=== PATIENT | female | born 1940 | race Caucasian/White ===

== ENCOUNTER → 2017-05-28 | Outpatient (CLI) | payer MEDICARE, BC ==
[2017-05-28 13:47] LABS: HCT 39.3 % (34.0-46.0); HGB 12.5 gm/dL (11.4-16.0); MCH 28.3 pg (25.0-35.0); MCHC 31.7 g/dL (31.0-37.0); MCV 89.3 fL (80.0-100.0); Platelet Count 266 k/uL (150-450); RDW 13.6 % (11.5-15.5); WBC 5.2 k/uL (3.8-10.6)
[2017-05-28 14:00] LABS: Calcium 10.2 mg/dL (8.4-10.2); Potassium 4.5 mmol/L (3.5-5.1); Total Bilirubin 0.4 mg/dL (0.2-1.3); Total Protein 6.8 g/dL (6.3-8.2)
[2017-05-28 14:06] LABS: Appearance,Urine Cloudy (Clear); Bacteria,Urine Rare /hpf; Bilirubin,Urine Negative (Negative); Blood,Urine Negative (Negative); Color,Urine Yellow; Glucose,Urine (UA) Negative (Negative); Hyaline Casts,Urine 45 /lpf (0-2); Ketones,Urine Negative (Negative); Leukocyte Esterase,Urine Negative (Negative); Mucus,Urine Rare /hpf; Nitrite,Urine Negative (Negative); PH, Urine 5.5 (5.0-8.0); Protein,Urine Negative (Negative); RBC,Urine <1 /hpf (0-5); Specific Gravity,Urine 1.018 (1.001-1.035); Squamous Epithelial Cell,Urine <1 /hpf (0-4); WBC,Urine 1 /hpf (0-5)
[2017-05-28 14:08] LABS: Partial Thromboplastin Time 20.6 sec (22.0-30.0); Prothrombin Time 10.2 sec (9.0-12.0)
== END | disposition home or self-care (01) ==
LOC: LABPAT 12:52
PROVIDERS: ATTEND Orthopaedic Surgery
DX: Z01.818 Encounter for other preprocedural examination (principal); Z01.812 Encounter for preprocedural laboratory examination
CPT/HCPCS: 36415; 80053; 81001; 85027; 85610; 85730; 86850; 86900; 86901; 87070

== ENCOUNTER 2017-06-03 10:05 | Inpatient (IN) | payer MEDICARE, BC ==
[2017-05-27 10:22] VITALS: BMI 26.1
[~2017-06-03 10:05] MED LIST: ACETAMINOPHEN TAB 500 MG TAB PO ONE; DEXAMETHASONE SOD PHOSPHATE 10 MG/ML 1 ML VIAL IV ONE; LACTATED RINGERS 1,000 ML IV SCH; MELOXICAM 7.5 MG TAB PO ONE; MIDAZOLAM 2 MG/2 ML VIAL IV PRN; MORPHINE SULFATE 4 MG/ML SYRINGE IV PRN; ONDANSETRON 4 MG/2 ML VIAL IVP ONE; TRANEXAMIC ACID 1,000 MG in SODIUM CHLORIDE 0.9% 50 ML IVPB ONE; ceFAZolin IN SWFI 2 GM/20 ML SYRINGE IVP ONE
[2017-06-03] MEDS ORDERED: LIDOCAINE 1% 20 ML VIAL (10MG/ML) FOR IV START INTRADERMA ONE (10:37)
[2017-06-03] MEDS ORDERED: PHENYLEPHRINE-0.9% NACL SYG 1 MG/10 ML SYRINGE ONE (12:33)
[2017-06-03] MEDS ORDERED: ePHEDrine SULFATE/0.9% NACL/PF 50 MG/5 ML SYRINGE IV ONE (12:33)
[2017-06-03] MEDS ORDERED: TRANEXAMIC ACID 1,000 MG/10 ML VIAL ONE (12:33)
[2017-06-03] MEDS ORDERED: MIDAZOLAM 2 MG/2 ML VIAL ONE (12:33)
[2017-06-03] MEDS ORDERED: SODIUM CHLORIDE 0.9% 100 ML BAG ONE (12:33)
[2017-06-03] MEDS ORDERED: PROPOFOL 10 MG/ML 20 ML VIAL IV ONE (12:33)
[2017-06-03] MEDS ORDERED: fentaNYL (PF) 50 MCG/ML 2 ML AMP ONE (12:33)
[2017-06-03] MEDS: ROPIVACAINE 246.25 MG, EPINEPHrine 0.5 MG, KETOROLAC 30 MG, cloNIDine HCL/PF 80 MCG, WA... MISCELLANE ONE ×10 (13:13→14:19)
[2017-06-03] MEDS ORDERED: ceFAZolin 1,000 MG in SODIUM CHLORIDE 0.9% 1,000 ML IRRIGATION ONE ×4 (13:14)
[2017-06-03] MEDS ORDERED: LACTATED RINGERS 1,000 ML IV ONE (14:34)
[2017-06-03] MEDS ORDERED: ONDANSETRON 4 MG/2 ML VIAL IVP PRN (14:48)
[2017-06-03] MEDS ORDERED: DIAZEPAM 5 MG TAB PO PRN ×2 (14:48)
[2017-06-03] MEDS ORDERED: MAGNESIUM HYDROXIDE 2,400 MG/10 ML CUP PO PRN (14:48)
[2017-06-03] MEDS ORDERED: HYDROmorphone 0.5 MG/0.5 ML SYRINGE IVP PRN ×3 (14:48)
[2017-06-03] MEDS ORDERED: NALOXONE 0.4 MG/ML 1 ML VIAL IV PRN (14:48)
[2017-06-03] MEDS ORDERED: SODIUM CHLORIDE 0.9% 1,000 ML IV SCH (15:00)
--- NOTE | 2017-06-03 15:19 | XR ---
Limited right hip HISTORY: Status post right hip arthroplasty Single frontal view of the right hip Patient is status post right hip arthroplasty. There is anatomic alignment. Lucency in the soft tissu es is compatible with postop state. IMPRESSION: Orthopedic follow-up.
--- NOTE | 2017-06-03 16:03 | P.OP ---
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 Postoperative Diagnosis: Polyethylene failure right total hip arthroplasty Procedure(s) Performed: Revision right total hip arthroplasty with the dual mobility insert Implants: [employer] polar cup shell cemented size 43 [employer] polar cup XLPE insert size 43/22 [employer]hew Oxinium 22 mm +8 femoral head [place] antibiotic cement with tobramycin The articulation is Oxinium on polyethylene Anesthesia: spinal Surgeon: Brennen Marcelino Steam Crane Operator #1: Suzi Jason Estimated Blood Loss (ml): 200 Pathology: other (Culture and Gram stain) Condition: stable Disposition: PACU Indications for Procedure: This is a 76-year-old female that sustained a femoral neck fracture proximally 10 years ago and had a total hip arthroplasty performed. She subsequently developed polyethylene wear and after discussing the surgical nonsurgical treatment options with her at length she wished to proceed with revision of her total hip arthroplasty and polyethylene exchange. Operative Findings: The operative findings are consistent with severe polyethylene wear of the right total hip arthroplasty. Also during the surgery, a large amount of clear yellow fluid was encountered and this was then cultured and had a Gram stain performed. The Gram stain showed gram-positive cocci. Due to the appearance of no active infection, the implants were left in place and antibiotic cement was used. Description of Procedure: Patient was seen and evaluated in the preoperative area, consent was reviewed, and the surgical site was marked with a skin marker. Patient was then brought to the operating room and given prophylactic antibiotics intravenously. 1 g of Tranexamic acid was also given. A spinal anesthetic was administered by the anesthesia department. The patient was then placed on the operative table and placed in the lateral decubitus position with the bony prominences well-padded. The hip area was then prepped and draped in usual sterile fashion. A universal timeout was then performed, which confirmed the patient's name, surgical site, ALLERGIES, and procedure being performed. Next the incision site was located in the lateral aspect of the hip, centered at the tip of the greater trochanter.. The skin and subcutaneous tissues were sharply incised. Incision was carefully dissected down to the fascia. This fascia was then incised in line with the incision. Next, a Charnley retractor was then placed in the abductors were identified. The anterior one third of the abductors was released off the trochanter and one large sleeve. The anterior hip capsule was then exposed. The capsule was then opened. A large amount of clear yellow fluid was then encountered, and this was then cultured. The proximal femur was then visualized. The hip was then gently dislocated. There was a large amount of reactive synovitis and this was removed with a Ronguer. The femoral head was then easily removed with an osteotome and a mallet. The femoral component was then inspected and found to be well fixed. Attention was then directed to the acetabulum. The acetabulum was then exposed and the polyethylene liner was easily removed. 2 screws removed from the acetabular component, and acetabular found to be well fixed. At this point the Gram stain had come back with gram-positive cocci. There did not appear to be any active infection, and due to the fact that her components were well fixed, made the decision to not remove all the components at this time. The dual mobility trials were then placed and hip was then reduced. Hip was taken through range of motion and was stable. The leg lengths appeared equal. Trials were then removed. The components were then opened, and antibiotic cement was mixed. The dual mobility liner was then cemented into the existing cup. After the cemented hardened the femoral head and dual mobility liner were then impacted and the hip was reduced. The leg lengths were again examined and found to be equal. The hip was also taken through range of motion, and found to be stable. The hip was then copiously irrigated with antibiotic solution with pulsatile lavage. The hip was then irrigated with Irrisept solution. The soft tissues were then injected with ropivacaine solution. A second dose of 1 g of Tranexamic acid was given. The abductors were then repaired with #5 Ethibond suture with drill holes to the bone. The fascia was closed with #2 strata fix suture. The subcutaneous tissue was closed with 3-0 Vicryl. The subcuticular tissue was closed with 30 strata fix suture. The skin was then closed with Dermabond glue, and a silver dressing. The patient was then transferred to the recovery room in stable condition. The Asst.AUGUSTO Mata was required due to the complexity of surgery, and the need for skilled surgical scrub technician for positioning, draping, exposure, retraction, and closure of the wound.and closure of the wound.
[2017-06-03] MEDS ORDERED: VANCOMYCIN IV PER PHARMACY 1 EACH MISC MISCELLANE PRN (20:03)
[2017-06-03] MEDS ORDERED: ASPIRIN 325 MG TAB PO SCH (21:00)
[2017-06-03] MEDS ORDERED: VANCOMYCIN 1,500 MG in SODIUM CHLORIDE 0.9% 250 ML IVPB ONE (21:00)
[2017-06-03] MEDS: ceFAZolin IN SWFI 2 GM/20 ML SYRINGE IVP SCH (21:34)
[2017-06-03] MEDS: SENNOSIDES-DOCUSATE SODIUM 1 EACH TAB PO SCH (21:35)
[2017-06-03] MEDS: HYDROcodone/APAP 5-325MG 1 EACH TAB PO PRN (21:35)
--- NOTE | 2017-06-03 22:14 | P.CONS ---
History of Present Illness - Reason for Consult Consult date: 06/03/17 - Chief Complaint Pain right hip - History of Present Illness Very pleasant 76-year-old woman who was noted infectious disease service from many years ago when she difficulty with an infection of her left total knee arthroplasty. It appears at the point in time she had bacteremic infection in the left knee was seated requiring its revision. She's done well over the last many years but in 2016 was having increasing pain to her right knee and underwent a right total knee arthroplasty the 1 extremely well. She which was up and walking the day of surgery and had a short hospitalization. She's had no other acute troubles except for increasing pain to her right hip. Was evaluation at the polyethylene was worn and consequently she was taken to the operating room for a revision. A dual mobility was placed however the time of the procedure a fluid collection was encountered at the time of the stat Gram stain gram-positive cocci were seen. Because there is no other evidence of infection at the site the procedure completed, antibiotic cement was utilized and the infectious diseases consultation was requested. It is time the patient is postoperative and doing quite well. Her pain is under good control she's been able to get up to the commode without great difficulties. She is denying any difficulties with fevers, chills or rigors before her surgery. Other than the pain from her arthritis she's had no other new acute complaints. Her weight is been stable and look forward to the surgery to get her more ambulatory because she is independent. She has been for 2 years and has done really quite well. Review of Systems HEENT:Denies headache or acute visual change. Denies sinus or mouth discomforts. Denies neck stiffness or pain. Denies significant oral cavity pain. Denies difficulty on swallowing. Lungs: Denies significant shortness of breath, cough, sputum production, or hemoptysis. Cardiovascular: Denies significant shortness of breath, chest pain, chest wall pain, orthopnea, dyspnea on exertion, syncope Gastrointestinal:Denies nausea, vomiting, diarrhea, constipation, hematemesis, melena, hematochezia. No no significant change of bowel habit noticed. Musculoskeletal: As per the HPI increasing pain to her right hip necessitating the surgery and the findings as above Skin: Denies new rash or lesions. No new ulcers or wounds are related.. Neuro: Denies headache or visual change. Denies any new onset weakness or difficulty with ambulation. Denies falls or seizures. Psychiatric:Denies anxiety or depression. Endocrine: Denies significant fatigue, denies significant weight loss or weight gain. Past Medical History Past Medical History: Hyperlipidemia, Hypertension, Osteoarthritis (OA), Rheumatoid Arthritis (RA) Additional Past Medical History / Comment(s): HX OF FX RIGHT HIP, STATES HX OF RIGHT AND LEFT LEG INFECTION., STATES BRONCHITIS 5 WEEKS AGO WITH STEROIDS. History of Any Multi-Drug Resistant Organisms: None Reported Past Surgical History: Hysterectomy, Joint Replacement, Tonsillectomy Additional Past Surgical History / Comment(s): TOTAL LEFT KNEE-ANTIBIOTICS BEADS , TOTAL RIGHT HIP , DARVIN CATARACTS. Past Anesthesia/Blood Transfusion Reactions: No Reported Reaction Past Psychological History: Anxiety Additional Psychological History / Comment(s): for 2 year lifelong nonsmoker. no international travel. no experience. No significant alcohol use or animal exposures. 2 adult children who remain involved. Her daughter will come to help her after surgery. Smoking Status: Never smoker Past Alcohol Use History: Occasional Past Drug Use History: None Reported - Past Family History Daughter(s) Family Medical History: Pulmonary Embolus Medications and Allergies Home Medications and Allergies Comment(s): Current Medications Hydrocodone Bitart/Acetaminophen ([place] 5-325) 1 each PO Q6HR PRN PRN Reason: Pain Scale 1 to 5 Last Admin: 06/03/17 21:35 Dose: 1 each Hydrocodone Bitart/Acetaminophen ([place] 5-325) 2 each PO Q6HR PRN PRN Reason: Pain Scale 6 to 10 Amlodipine Besylate (Norvasc) 10 mg PO DAILY [facility] Aspirin (Aspirin) 325 mg PO BID [facility] Last Admin: 06/03/17 21:35 Dose: 325 mg Atorvastatin Calcium (Lipitor) 40 mg PO DAILY [facility] Bisoprolol Fumarate (Ziac 10-6.25) 1 each PO DAILY [facility] Cefazolin Sodium (Kefzol) 2 gm IVP Q8H [facility] Stop: 06/04/17 04:01 Last Admin: 06/03/17 21:34 Dose: 2 gm Diazepam (Valium) 2.5 mg PO Q8HR PRN PRN Reason: Mild Spasms Diazepam (Valium) 5 mg PO Q8HR PRN PRN Reason: Moderate to Severe Spasms Fenofibrate (Lofibra) 160 mg PO DAILY [facility] Hydromorphone HCl (Dilaudid) 0.125 mg IVP Q3HR PRN PRN Reason: Pain Scale 1 to 3 Hydromorphone HCl (Dilaudid) 0.25 mg IVP Q3HR PRN PRN Reason: Pain Scale 4 to 6 Hydromorphone HCl (Dilaudid) 0.5 mg IVP Q3HR PRN PRN Reason: Pain Scale 7 to 10 Hydroxyzine Pamoate (Vistaril) 25 mg PO Q4HR PRN PRN Reason: Nausea, Anxiety, Pain Control Lactated Ringer's (Lactated Ringers) 1,000 mls @ 20 mls/hr IV .Q24H [facility] Last Admin: 06/03/17 11:13 Dose: 1,000 mls Sodium Chloride (Saline 0.9%) 1,000 mls @ 65 mls/hr IV .[id number] [facility] Last Admin: 06/03/17 21:38 Dose: 65 mls/hr Vancomycin HCl 1,500 mg/ (Sodium Chloride) 250 mls @ 125 mls/hr IVPB ONCE ONE Stop: 06/03/17 22:59 Last Admin: 06/03/17 21:36 Dose: 125 mls/hr Vancomycin HCl 1,250 mg/ (Sodium Chloride) 250 mls @ 125 mls/hr IVPB Q16H [facility] Lactobacillus Acidoph/Bulgaricus (Lactinex) 1 each PO 1200 [facility] Magnesium Hydroxide (Milk Of Magnesia) 2,400 mg PO DAILY PRN PRN Reason: Constipation Meloxicam (Mobic) 7.5 mg PO DAILY [facility] Midazolam HCl (Versed) 2 mg IV ONCE PRN PRN Reason: Anxiety Stop: 06/04/17 05:14 Morphine Sulfate (Morphine Sulfate (Inj)) 4 mg IV ONCE PRN PRN Reason: Pain Stop: 06/04/17 05:14 Multivitamins (Theragran) 1 each PO 1200 [facility] Naloxone HCl (Narcan) 0.2 mg IV Q2M PRN PRN Reason: Opioid Reversal Ondansetron HCl (Zofran) 4 mg IVP DAILY PRN PRN Reason: Nausea And Vomiting Oxybutynin Chloride (Ditropan Xl) 10 mg PO DAILY [facility] Senna/Docusate Sodium (Senokot-S) 2 each PO HS [facility] Last Admin: 06/03/17 21:35 Dose: 2 each Venlafaxine HCl (Effexor Xr) 75 mg PO DAILY [facility] Home Medications Medication Instructions Recorded Confirmed Type Atorvastatin [Lipitor] 40 mg PO DAILY 08/29/15 06/03/17 History Bisoprolol-Hctz 10-6.25 mg [Ziac 1 tab PO DAILY 08/29/15 06/03/17 History 10-6.25] Celecoxib [CeleBREX] 200 mg PO DAILY 08/29/15 06/03/17 History Fenofibrate [Tricor] 160 mg PO DAILY 08/29/15 06/03/17 History Solifenacin Succinate [Vesicare] 5 mg PO DAILY 08/29/15 06/03/17 History amLODIPine [Norvasc] 10 mg PO DAILY 08/29/15 06/03/17 History L.acidoph,Paracasei, B.lactis 1 cap PO DAILY 05/27/17 06/03/17 History [Probiotic] Magnesium Malate 1 tab PO DAILY 05/27/17 06/03/17 History Multivitamins, Thera [Multivitamin 1 tab PO DAILY 05/27/17 06/03/17 History (formulary)] oxyCODONE-APAP 7.5-325MG [Percocet 1 tab PO BID PRN 05/27/17 06/03/17 History 7.5-325 mg] Venlafaxine HCl ER [Effexor Xr] 75 mg PO DAILY 06/03/17 06/03/17 History Allergies Allergy/AdvReac Type Severity Reaction Status Date / Time No Known Allergies Allergy Verified 06/03/17 15:57 Physical Exam Vitals: Vital Signs Temp Pulse Pulse Resp BP BP Pulse Ox 06/03/17 18:00 69 134/52 06/03/17 17:45 86 159/72 06/03/17 17:30 73 141/58 06/03/17 17:15 84 155/66 06/03/17 17:00 81 158/58 06/03/17 16:45 75 148/65 06/03/17 16:30 78 149/81 06/03/17 16:15 78 139/67 06/03/17 16:00 96.6 F L 69 16 143/74 100 06/03/17 15:30 79 16 160/72 100 06/03/17 15:15 79 16 161/70 100 02/13/18 15:00 77 16 147/63 100 06/03/17 14:48 97.8 F 81 16 150/63 97 06/03/17 10:35 97.2 F L 54 L 18 173/72 100 Intake and Output 06/03/17 06/03/17 06/03/17 06:59 14:59 22:59 Intake Total 1012 90 Output Total 200 Balance 812 90 Intake: IV 1012 90 Output: Estimated Blood Loss 200 Other: Weight 71.214 kg Patient Weight 06/04/17 06:59 Weight 71.214 kg Pleasant 76-year-old woman of a thin appropriate build who is in no distress. Without fever chills or rigors. HEENT: Anicteric conjunctiva are pink and moist nasal mucosa grossly intact without significant lesions, there is no thrush. Neck: The neck is supple without significant lymphadenopathy or thyromegaly. Lungs: Good bilateral air entry without significant crackles or wheezing. There is no significant bronchial sounds. There is no egophony or dullness. Heart: Regular rate and rhythm with an audible S1-S2, no S3 no S4. There is no significant murmur click or rub, PMI was nondisplaced. Abdomen: Positive bowel sounds soft and nontender without palpable masses or organomegaly. There was no guarding or rebound. Extremities: The upper extremities have excellent pulses they are symmetric, no significant petechiae or telangiectasia. No splinter hemorrhages were noted. The lower extremities are free from significant edema. The peripheral pulses were 2+ and symmetric. The right hip was evaluated in the silver dressing is in place with no staining. There is no erythema crepitance or fluctuance around the joints. The left knee is well-healed with no difficulties. The right knee is also well-healed with no erythema crepitance or fluctuance. Neuro: Awake alert oriented to person place and time. There are no acute new gross focal sensory motor deficits. Results Labs: Microbiology - Last 24 Hours (Table) 06/03/17 13:10 Wound Culture - Preliminary Hip - Right 06/03/17 13:10 Anaerobic Culture - Preliminary Hip - Right Laboratory Results Blood Type AB Positive 05/28/17 13:20 Blood Type Confirm AB Positive 06/03/17 10:44 Blood Type Recheck CABO Indicated 05/28/17 13:20 Antibody Screen NEGATIVE 05/28/17 13:20 Spec Expiration Date 06/05/2017 - 231905/28/17 13:20 Microbiology 06/03/17 13:10 Hip - Right Wound Culture - Preliminary 06/03/17 13:10 Hip - Right Anaerobic Culture - Preliminary Assessment and Plan (1) Tear in polyethylene cup of right prosthetic hip Current Visit: Yes Status: Acute Code(s): T84.010A - BROKEN INTERNAL RIGHT HIP PROSTHESIS, INITIAL ENCOUNTER SNOMED Code(s): 323340680 (2) Infection and inflammatory reaction due to internal right hip prosthesis, initial encounter Narrative/Plan: Pleasant 76-year-old woman presents to Hospital for the revision of her polyethylene to her right hip because of increasing difficulties with ambulation and discomfort. She was taken to the operating room and the dual mobility was placed. As noted there is evidence of fluid collection that was encountered and Gram stain was positive for gram-positive cocci. If this time culture is in process and antibiotic therapy has been initiated with vancomycin therapy with cefazolin. Pending further culture results. Does have a history of infection to her left knee that did require vancomycin therapy. The patient is instructed that the culture will help further direct what her course of antibiotic therapy would be a discharge. However in the highest likelihood that she will require outpatient intravenous antibiotic therapy for this infection. She's had outpatient therapy in the past but her was alive was able to orchestrated. We discussed that she still would like to do it herself possibly utilizing elastomeric pumps. Laboratories are requested Multivitamin with zinc High-protein diet and she is up-to-date with her tetanus. We'll monitor. Current Visit: Yes Status: Acute Code(s): T84.51XA - INFECT/INFLM REACTION DUE TO INTERNAL RIGHT HIP PROSTH, INIT SNOMED Code(s): 14453697
--- NOTE | 2017-06-03 22:46 | CONS ---
CONSULTATION DATE OF SERVICE: 06/03/2017. REASON FOR CONSULTATION: Medical management requested by Dr. Marcelino. CONSULTATION: This is a pleasant 76-year-old patient of Dr. Dawson. Has undergone a right total hip arthroplasty. This is a revision. The patient had a similar joint replacement on the same joint 10 years ago, which is now worn out. Postoperative pain is well controlled. No nausea or vomiting. No chest pain or short of breath. Sitting up, comfortable. The patient's chronic stable medical conditions include hypertension, hyperlipidemia, anxiety, urinary incontinence, arthritis in other joints. REVIEW OF SYSTEMS: CONSTITUTIONAL: None. HEENT: None. RESPIRATORY: None. CARDIOVASCULAR: None. GASTROINTESTINAL: None. GENITOURINARY: Urinary incontinence. DERMATOLOGIC: None. HEMATOLOGIC: None. LYMPHATICS: None. NEUROLOGIC: None. PSYCHIATRY: Anxiety. MUSCULOSKELETAL: Pain in some joints. PAST MEDICAL HISTORY: Hypertension, hyperlipidemia, osteoarthritis, anxiety, urinary incontinence. PAST SURGICAL HISTORY: Hysterectomy, joint replacement, tonsillectomy, left total knee with antibiotic beads, total right hip, bilateral cataract. SOCIAL HISTORY: Does not smoke. Alcohol occasionally. The patient has a daughter and a boyfriend at home. FAMILY HISTORY: Pulmonary embolism. HOME MEDICATIONS: 1. Percocet 7.5 one tab b.i.d. p.r.n. 2. Norvasc 10 mg p.o. daily. 3. Effexor XR 75 mg p.o. daily. 4. VESIcare 5 mg p.o. daily. 5. Multivitamin 1 tab p.o. daily. 6. Magnesium 1 tab p.o. daily. 7. Probiotic 1 capsule p.o. daily. 8. Tricor 160 mg p.o. daily. 9. Celebrex 200 mg p.o. daily. 10.Ziac 10/625 one tab p.o. daily. 11.Lipitor 40 mg p.o. daily. ALLERGIES: None. PHYSICAL EXAMINATION: Afebrile, pulse 69, respiration 16, blood pressure 134/52. GENERAL APPEARANCE: Average built, sitting up, comfortable. EYES: Pupils equal. Conjunctivae normal. HEENT: Oral cavity normal. NECK: JVD not raised. Mass not palpable. Respiratory effort. LUNGS: Clear. CARDIOVASCULAR: First and second sounds normal. No edema. ABDOMEN: Soft, nontender. Liver and spleen not palpable. LYMPHATIC: No lymph nodes palpable in neck or axillae. PSYCHIATRY: Alert, oriented x3. Mood and affect normal. NEUROLOGIC: Pupils equal. Cranial nerves grossly intact. Power and sensation grossly intact. EXTREMITIES: Dressing over the right hip. INVESTIGATIONS: Blood work from 05/17/2017 shows a white count of 5.2, hemoglobin 12.5, potassium 4.5, creatinine 1.3. ASSESSMENT: 1. Essential hypertension. 2. Hyperlipidemia. 3. Primary osteoarthritis. 4. Anxiety, not otherwise specified. 5. Chronic urinary stress incontinence. 6. Possible chronic kidney disease, could be from hypertensive nephrosclerosis. Note that patient is on Celebrex and Ziac. PLAN: Will order renal ultrasound. We will check the patient's UA. Because patient currently is also getting Mobic and aspirin for DVT prophylaxis, that could be pretty heavy on the kidneys. For the time being we will put the patient on Lovenox and talk to Dr. Marcelino in the morning for the DVT prophylaxis. MMODL / IJN: [id number] /
[2017-06-04] MEDS: ceFAZolin IN SWFI 2 GM/20 ML SYRINGE IVP SCH (04:02)
[2017-06-04] MEDS: HYDROcodone/APAP 5-325MG 1 EACH TAB PO PRN ×3 (04:08→18:21)
[2017-06-04] MEDS: hydrOXYzine PAMOATE 25 MG CAP PO PRN ×3 (04:09→18:23)
[2017-06-04 07:30] VITALS: RESP 16
[2017-06-04 07:57] LABS: Basophils % (A) 0 %; Eosinophils % (A) 0 %; Lymphocytes # (A) 0.9 k/uL (1.0-4.8); Lymphocytes % (A) 9 %; MCHC 31.5 g/dL (31.0-37.0); Monocytes # (A) 0.7 k/uL (0-1.0); Monocytes % (A) 7 %; Neutrophils # (A) 7.6 k/uL (1.3-7.7); Neutrophils % (A) 81 %; Platelet Count 195 k/uL (150-450); RBC 3.59 m/uL (3.80-5.40); RDW 13.6 % (11.5-15.5); WBC 9.4 k/uL (3.8-10.6)
[2017-06-04 08:00] LABS: HGB 10.1 gm/dL (11.4-16.0)
[2017-06-04 08:04] LABS: Anion Gap 7 mmol/L; Blood Urea Nitrogen 24 mg/dL (7-17); Calcium 9.2 mg/dL (8.4-10.2); Carbon Dioxide 26 mmol/L (22-30); Chloride 107 mmol/L (98-107); Glucose 134 mg/dL (74-99); Sodium 140 mmol/L (137-145)
[2017-06-04 08:14] LABS: Potassium 4.5 mmol/L (3.5-5.1)
[2017-06-04] MEDS ORDERED: MELOXICAM 7.5 MG TAB PO SCH (09:00)
[2017-06-04] MEDS: BISOPROLOL-HCTZ 10-6.25 MG 1 EACH TAB PO SCH (09:35)
[2017-06-04] MEDS: ATORVASTATIN 40 MG TAB PO SCH (09:35)
[2017-06-04] MEDS: ENOXAPARIN 40 MG/0.4 ML SYRINGE SQ SCH (09:35)
[2017-06-04] MEDS: amLODIPine 10 MG TAB PO SCH (09:35)
[2017-06-04] MEDS: FENOFIBRATE 160 MG TAB PO SCH (09:35)
[2017-06-04] MEDS: VENLAFAXINE HCL ER 75 MG CAP PO SCH (09:36)
--- NOTE | 2017-06-04 11:45 | US ---
EXAMINATION TYPE: US renals and bladder DATE OF EXAM: 06/04/2017 COMPARISON: NONE CLINICAL HISTORY: renal failure. EXAM MEASUREMENTS: Right Kidney: 10.7 x 5.0 x 6.5 cm Left Kidney: 9.6 x 4.7 x 5.2 cm Right Kidney: No hydronephrosis or masses seen Left Kidney: No hydronephrosis or masses seen Bladder: empty and therefore not visualized There is no evidence for hydronephrosis at this point in time. No nephrolithiasis is seen. No lynette s are identified. The urinary bladder is empty IMPRESSION: No acute process.
[2017-06-04] MEDS: LACTATED RINGERS 1,000 ML IV SCH ×2 (12:51→22:15)
[2017-06-04] MEDS: OXYBUTYNIN 10 MG TAB.ER.24 PO SCH (12:52)
[2017-06-04] MEDS: MULTIVITAMINS, THERA 1 EACH TAB PO SCH (12:53)
[2017-06-04] MEDS: LACTOBACILLUS ACIDOPH & BULGAR 1 EACH PACKET PO SCH (12:53)
[2017-06-04] MEDS: VANCOMYCIN 1,250 MG in SODIUM CHLORIDE 0.9% 250 ML IVPB SCH (12:57)
[2017-06-04 14:19] LABS: Appearance,Urine Clear (Clear); Bilirubin,Urine Negative (Negative); Blood,Urine Negative (Negative); Color,Urine Yellow; Glucose,Urine (UA) Trace (Negative); Ketones,Urine Trace (Negative); Leukocyte Esterase,Urine Negative (Negative); Nitrite,Urine Negative (Negative); PH, Urine 5.5 (5.0-8.0); Protein,Urine Trace (Negative); Specific Gravity,Urine 1.024 (1.001-1.035); Urobilinogen,Urine <2.0 mg/dL (<2.0)
--- NOTE | 2017-06-04 22:02 | PN ---
PROGRESS NOTE DATE OF SERVICE: June 04, 2017. PRESENTING COMPLAINT: Hip surgery. INTERVAL HISTORY: Patient is status post right total hip arthroplasty. Sitting on bed, comfortable. Has been up with therapy, doing better. No chest pain. Overall feeling better. Tolerating a diet. REVIEW OF SYSTEMS: Done for constitutional, cardiovascular, GI, pulmonary, musculoskeletal, relevant findings as above. CURRENT MEDICATIONS ARE: Resumed. EXAMINATION: Temperature 98.1, pulse 64, respiratory rate 16, blood pressure 126/65, pulse ox 97% on room air. General appearance sitting up comfortable. Eyes pupils are equal. Conjunctivae normal. HEENT: External appearance of nose and ears normal. Oral cavity normal. Neck JVD not raised. Mass not palpable. Respiratory effort lungs are clear. Cardiovascular 1st and 2nd sounds no edema. ABDOMEN: Soft, nontender. Liver and spleen not palpable. Psychiatry: Alert and oriented x3. Mood and affect normal. INVESTIGATIONS: White count 9.4, hemoglobin 10.1. ASSESSMENT: 1. Essential hypertension. 2. Hyperlipidemia. 3. Primary osteoarthritis. 4. Anxiety, not otherwise specified. 5. Chronic urinary stress incontinence. 6. Acute postop blood-loss anemia. 7. Chronic kidney disease. 8. Acute renal failure probably prerenal now corrected with IV fluids. PLAN: Continue current medication and treatment plan. Follow. MMODL / IJN: [id number] /
[2017-06-04] MEDS: SENNOSIDES-DOCUSATE SODIUM 1 EACH TAB PO SCH (22:14)
[2017-06-05] MEDS: HYDROcodone/APAP 5-325MG 1 EACH TAB PO PRN ×2 (03:31→10:58)
[2017-06-05] MEDS: VANCOMYCIN 1,250 MG in SODIUM CHLORIDE 0.9% 250 ML IVPB SCH (03:31)
[2017-06-05] MEDS: hydrOXYzine PAMOATE 25 MG CAP PO PRN ×2 (03:33→10:58)
[2017-06-05] MEDS: LACTATED RINGERS 1,000 ML IV SCH (06:59)
[2017-06-05 07:56] LABS: Anion Gap 7 mmol/L; Blood Urea Nitrogen 25 mg/dL (7-17); Calcium 9.7 mg/dL (8.4-10.2); Carbon Dioxide 30 mmol/L (22-30); Chloride 105 mmol/L (98-107); Glucose 86 mg/dL (74-99); Potassium 4.5 mmol/L (3.5-5.1); Sodium 142 mmol/L (137-145)
--- NOTE | 2017-06-05 08:47 | P.PN ---
Subjective Progress Note Date: 06/04/17 This is a 76-year-old female who is status post revision right total hip arthroplasty. This is postoperative day #1. Patient is seen and evaluated at bedside with Dr. Brennen Marcelino. Patient states her pain is well controlled. Patient denies any fever/chills, numbness, weakness, tingling, abdominal pain, shortness of breath or chest pain. Objective - Vital Signs Vital signs: Vital Signs Temp 98.1 F 06/04/17 07:28 Pulse 68 06/04/17 07:28 Resp 16 06/04/17 07:28 BP 136/67 06/04/17 07:28 Pulse Ox 98 06/04/17 07:28 Intake & Output 06/03/17 06/04/17 06/04/17 18:59 06:59 18:59 Intake Total 1102 2250 Output Total 200 500 Balance 902 1750 Weight 71.214 kg Intake: IV 1102 Intake, IV Titration 1290 Amount Sodium Chloride 0.9% 1, 1040 000 ml @ 65 mls/hr IV . [id number] KENDY Rx#:[id number] Vancomycin 1,250 mg In 250 Sodium Chloride 0.9% 250 ml @ 125 mls/hr IVPB Q16H KENDY Rx#:[id number] Oral 960 Output: Urine 500 Estimated Blood Loss 200 Other: # Voids 1 - Exam Vital signs are stable. Patient is in no acute distress and is alert and oriented 3. Calf is soft and nontender to palpation. Dressing is clean, dry, and intact. Patient has full foot and ankle motion without pain or difficulty. Neurovascular status and circulatory status are intact. 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 Continue routine postop care. #2. Cultures of right hip are pending. A positive Gram stain was reported during surgery. Appreciate input from Infectious disease. #3. Continue antocoagulation. #4. Weightbearing as tolerated with a walker #5. Leave dressing in place for 1 week #6. Possible discharge home in the next 1-2 days
[2017-06-05] MEDS: amLODIPine 10 MG TAB PO SCH (09:08)
[2017-06-05] MEDS: ENOXAPARIN 40 MG/0.4 ML SYRINGE SQ SCH (09:08)
[2017-06-05] MEDS: OXYBUTYNIN 10 MG TAB.ER.24 PO SCH (09:08)
[2017-06-05] MEDS: VENLAFAXINE HCL ER 75 MG CAP PO SCH (09:08)
[2017-06-05] MEDS: FENOFIBRATE 160 MG TAB PO SCH (09:08)
[2017-06-05] MEDS: ATORVASTATIN 40 MG TAB PO SCH (09:08)
[2017-06-05] MEDS: BISOPROLOL-HCTZ 10-6.25 MG 1 EACH TAB PO SCH (09:09)
--- NOTE | 2017-06-05 11:09 | P.DS ---
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 The patient presents for evaluation. After discussion and consideration patient elects to proceed with revision right total hip arthroplasty. The patient is seen preoperatively by Dr. Marcelino and cleared for surgery. Patient is admitted to [facility] on 06/03/2017 for revision right total hip arthroplasty. The procedures performed without complication or sequelae. The patient is doing well postoperatively. Labs and vital signs are stable on day of discharge. An initial gram stain was positive for rare PMN and a rare gram-positive in cluster and was reported during surgery. Patient received IV vancomycin and cefozolin as an inpatient. Infectious disease evaluated the patient and will place her on oral antibiotics upon discharge. Preliminary wound cultures of the right hip are negative after 24 hours. On day of discharge patient's hip incision is healing well. There is minimal erythema. There is no drainage noted at this time. There is minimal soft tissue swelling to the hip and thigh. Patient has full foot and ankle motion without difficulty or pain. Neurovascular status to the right lower extremity is intact. Patient is discharged home in good condition. Please see med rec for accurate list of home medications. Plan - Discharge Summary Discharge Rx Participant: Yes New Discharge Prescriptions: New HYDROcodone/APAP 5-325MG [[place] 5-325] 1 - 2 tab PO Q4-6H PRN #90 tab PRN Reason: Pain Sennosides [Senokot] 1 tab PO BID #60 tablet Moxifloxacin HCl 400 mg PO DAILY #7 tab Aspirin 325 mg PO BID #60 tab No Action Bisoprolol-Hctz 10-6.25 mg [Ziac 10-6.25] 1 tab PO DAILY Solifenacin Succinate [Vesicare] 5 mg PO DAILY Atorvastatin [Lipitor] 40 mg PO DAILY Celecoxib [CeleBREX] 200 mg PO DAILY Fenofibrate [Tricor] 160 mg PO DAILY amLODIPine [Norvasc] 10 mg PO DAILY oxyCODONE-APAP 7.5-325MG [Percocet 7.5-325 mg] 1 tab PO BID PRN PRN Reason: Pain Multivitamins, Thera [Multivitamin (formulary)] 1 tab PO DAILY Magnesium Malate 1 tab PO DAILY L.acidoph,Paracasei, B.lactis [Probiotic] 1 cap PO DAILY Venlafaxine HCl ER [Effexor Xr] 75 mg PO DAILY Solifenacin Succinate [Vesicare] 5 mg PO DAILY Discharge Medication List Atorvastatin [Lipitor] 40 mg PO DAILY 08/29/15 [History] Bisoprolol-Hctz 10-6.25 mg [Ziac 10-6.25] 1 tab PO DAILY 08/29/15 [History] Celecoxib [CeleBREX] 200 mg PO DAILY 08/29/15 [History] Fenofibrate [Tricor] 160 mg PO DAILY 08/29/15 [History] Solifenacin Succinate [Vesicare] 5 mg PO DAILY 08/29/15 [History] amLODIPine [Norvasc] 10 mg PO DAILY 08/29/15 [History] L.acidoph,Paracasei, B.lactis [Probiotic] 1 cap PO DAILY 05/27/17 [History] Magnesium Malate 1 tab PO DAILY 05/27/17 [History] Multivitamins, Thera [Multivitamin (formulary)] 1 tab PO DAILY 05/27/17 [History ] oxyCODONE-APAP 7.5-325MG [Percocet 7.5-325 mg] 1 tab PO BID PRN 05/27/17 [ History] Venlafaxine HCl ER [Effexor Xr] 75 mg PO DAILY 06/03/17 [History] Solifenacin Succinate [Vesicare] 5 mg PO DAILY 06/04/17 [History] Aspirin 325 mg PO BID #60 tab 06/05/17 [Rx] HYDROcodone/APAP 5-325MG [[place] 5-325] 1 - 2 tab PO Q4-6H PRN #90 tab 06/05/17 [ Rx] Moxifloxacin HCl 400 mg PO DAILY #7 tab 06/05/17 [Rx] Sennosides [Senokot] 1 tab PO BID #60 tablet 06/05/17 [Rx] Follow up Appointment(s)/Referral(s): [facility], [NON-STAFF] - Brennen Marcelino DO [Doctor of Osteopathic Medicine] - 06/20/17 2:00 pm Activity/Diet/Wound Care/Special Instructions: Weightbearing as tolerated with walker Leave dressing intact. Dressing may be removed by home care nurse in 7 days, . May shower with dressing on. Follow-up with [facility] in 2 weeks, please call with any questions or concerns [phone] Discharge Disposition: HOME WITH HOME HEALTH SERVICES
[2017-06-05] MEDS: MULTIVITAMINS, THERA 1 EACH TAB PO SCH (12:36)
[2017-06-05] MEDS: LACTOBACILLUS ACIDOPH & BULGAR 1 EACH PACKET PO SCH (12:37)
[2017-06-05 12:46] VITALS: BP 144/58; PULSE 58; TEMP 98.9
[2017-06-05] MEDS ORDERED: VANCOMYCIN TROUGH DUE 1 EACH MISC MISCELLANE ONE (19:00)
--- NOTE | 2017-06-05 20:58 | P.PN ---
Progress Note - Text Progress Note Date: 06/05/17 DATE OF SERVICE: 06/05/2017 Reason for consultation: Medical management requested by Dr. Marcelino HISTORY OF PRESENT ILLNESS: 76-year-old female underwent a right total hip arthroplasty about 10 years ago which is now worn out. Presented today for right total hip arthroplasty revision. INTERVAL HISTORY: 06/05/2017: Sitting up in her bed appears comfortable. Agreeable to work with physical therapy. No chest pain shortness of breath, no nausea or vomiting. Tolerating her diet eating about 50% of her meals. Ambulatory with a walker and assistance. REVIEW OF SYSTEMS: Done for constitutional ,cardiovascular, GI, pulmonary with relevant findings as above. CURRENT MEDICATIONS [place], Norvasc, Lipitor, Valium, Lovenox, fenofibrate, Dilaudid, Vistaril, Lactinex, milk of magnesia, vancomycin, multivitamin, Zofran, Ditropan, Senokot- S, PHYSICAL EXAM VITAL SIGNS: Temperature 98.2, pulse 60, respiratory rate 16, blood pressure 149/54, oxygen saturation 96% on room air GENERAL APPEARANCE: Lying in bed, not in distress. HENT: Normocephalic, JVD not raised. Mass not palpable. Oral cavity normal, external appearance of ears and nose normal. EYES:Pupils equal. Conjunctiva normal. RESPIRATORY: Respiratory effort normal. Lungs clear to auscultation. CARDIOVASCULAR: First and second sounds normal. No edema. ABDOMEN: Soft. Liver and spleen not palpable. No tenderness. No mass palpable. PSYCHIATRY: Alert and oriented x3. Mood and affect normal. EXTREMITY: Right hip with a dry dressing in place no drainage noted. INVESTIGATIONS: LABS: BUN 25, creatinine 1.06 ASSESSMENT: -Essential hypertension. -Hyperlipidemia. -Primary osteoarthritis, multiple joints bilateral. -Anxiety, not otherwise specified. -Chronic urinary stress incontinence. -Acute postop blood loss anemia as expected from surgery. -Chronic kidney disease. -Acute renal failure probably prerenal from decreased oral intake PLAN: BUN and creatinine continue be mildly elevated, should continue to follow-up outpatient with primary care physician. Labs should be drawn 3-5 days after discharge for follow-up. From a medical standpoint patient is stable for discharge home. VOCAL ARTIST statement: Patient was seen and examined by nurse practitioner Paola Garcia and all elements of the case discussed with attending Dr. Saravia
--- NOTE | 2017-06-05 21:55 | P.PN ---
Subjective Progress Note Date: 06/05/17 Principal diagnosis: Very pleasant 76-year-old woman who was noted infectious disease service from many years ago when she difficulty with an infection of her left total knee arthroplasty. It appears at the point in time she had bacteremic infection in the left knee was seated requiring its revision. She's done well over the last many years but in 2016 was having increasing pain to her right knee and underwent a right total knee arthroplasty the 1 extremely well. She which was up and walking the day of surgery and had a short hospitalization. She's had no other acute troubles except for increasing pain to her right hip. Was evaluation at the polyethylene was worn and consequently she was taken to the operating room for a revision. A dual mobility was placed however the time of the procedure a fluid collection was encountered at the time of the stat Gram stain gram-positive cocci were seen. Because there is no other evidence of infection at the site the procedure completed, antibiotic cement was utilized and the infectious diseases consultation was requested. It is time the patient is postoperative and doing quite well. Her pain is under good control she's been able to get up to the commode without great difficulties. She is denying any difficulties with fevers, chills or rigors before her surgery. Other than the pain from her arthritis she's had no other new acute complaints. Her weight is been stable and look forward to the surgery to get her more ambulatory because she is independent. She has been for 2 years and has done really quite well. 06/05/2017 patient doing considerably better. Looking forward to going home Objective - Vital Signs Vital signs: Vital Signs Temp 98.9 F 06/05/17 12:45 Pulse 58 L 06/05/17 12:45 Resp 16 06/05/17 12:45 BP 144/58 06/05/17 12:45 Pulse Ox 100 06/05/17 12:45 Intake & Output 06/05/17 06/05/17 06/06/17 06:59 18:59 06:59 Intake Total 2040 360 Output Total 500 Balance 1540 360 Weight 71.214 kg Intake: Intake, IV Titration 850 Amount Lactated Ringers 1,000 ml 600 @ 100 mls/hr IV .Q10H KENDY Rx#:[id number] Vancomycin 1,250 mg In 250 Sodium Chloride 0.9% 250 ml @ 125 mls/hr IVPB Q16H KENDY Rx#:[id number] Oral 1190 360 Output: Urine 500 Other: Voiding Method Toilet Toilet # Voids 3 - Exam Pleasant 76-year-old woman of a thin appropriate build who is in no distress. Without fever chills or rigors. HEENT: Anicteric conjunctiva are pink and moist nasal mucosa grossly intact without significant lesions, there is no thrush. Neck: The neck is supple without significant lymphadenopathy or thyromegaly. Lungs: Good bilateral air entry without significant crackles or wheezing. There is no significant bronchial sounds. There is no egophony or dullness. Heart: Regular rate and rhythm with an audible S1-S2, no S3 no S4. There is no significant murmur click or rub, PMI was nondisplaced. Abdomen: Positive bowel sounds soft and nontender without palpable masses or organomegaly. There was no guarding or rebound. Extremities: The upper extremities have excellent pulses they are symmetric, no significant petechiae or telangiectasia. No splinter hemorrhages were noted. The lower extremities are free from significant edema. The peripheral pulses were 2+ and symmetric. The right hip was evaluated in the silver dressing is in place with no staining. There is no erythema crepitance or fluctuance around the joints. The left knee is well-healed with no difficulties. The right knee is also well-healed with no erythema crepitance or fluctuance. Neuro: Awake alert oriented to person place and time. There are no acute new gross focal sensory motor deficits. - Labs CBC & Chem 7: 06/04/17 07:02 06/05/17 06:49 Labs: Abnormal Lab Results - Last 24 Hours (Table) 06/05/17 Range/Units 06:49 BUN 25 H (7-17) mg/dL Creatinine 1.06 H (0.52-1.04) mg/dL Microbiology - Last 24 Hours (Table) 06/03/17 13:10 Gram Stain - Final Hip - Right Wound Culture - Final 06/03/17 13:10 Anaerobic Culture - Preliminary Hip - Right Laboratory Results WBC 9.4 k/uL (3.8-10.6) 06/04/17 07:02 RBC 3.59 m/uL (3.80-5.40) L 06/04/17 07:02 Hgb 10.1 gm/dL (11.4-16.0) L 06/04/17 07:02 Hct 32.0 % (34.0-46.0) L 06/04/17 07:02 MCV 89.0 fL (80.0-100.0) 06/04/17 07:02 MCH 28.0 pg (25.0-35.0) 06/04/17 07:02 MCHC 31.5 g/dL (31.0-37.0) 06/04/17 07:02 RDW 13.6 % (11.5-15.5) 06/04/17 07:02 Plt Count 195 k/uL (150-450) 06/04/17 07:02 Neutrophils % 81 % 06/04/17 07:02 Lymphocytes % 9 % 06/04/17 07:02 Monocytes % 7 % 06/04/17 07:02 Eosinophils % 0 % 06/04/17 07:02 Basophils % 0 % 06/04/17 07:02 Neutrophils # 7.6 k/uL (1.3-7.7) 06/04/17 07:02 Lymphocytes # 0.9 k/uL (1.0-4.8) L 06/04/17 07:02 Monocytes # 0.7 k/uL (0-1.0) 06/04/17 07:02 Eosinophils # 0.0 k/uL (0-0.7) 06/04/17 07:02 Basophils # 0.0 k/uL (0-0.2) 06/04/17 07:02 ESR 5 mm/hr (0-20) 06/04/17 07:02 Sodium 142 mmol/L (137-145) 06/05/17 06:49 Potassium 4.5 mmol/L (3.5-5.1) 06/05/17 06:49 Chloride 105 mmol/L (98-107) 06/05/17 06:49 Carbon Dioxide 30 mmol/L (22-30) 06/05/17 06:49 Anion Gap 7 mmol/L 06/05/17 06:49 BUN 25 mg/dL (7-17) H 06/05/17 06:49 Creatinine 1.06 mg/dL (0.52-1.04) H 06/05/17 06:49 Est GFR (MDRD) Af Amer >60 (>60 ml/min/1.73 sqM) 06/05/17 06:49 Est GFR (MDRD) Non-Af 51 (>60 ml/min/1.73 sqM) 06/05/17 06:49 Glucose 86 mg/dL (74-99) 06/05/17 06:49 Calcium 9.7 mg/dL (8.4-10.2) 06/05/17 06:49 C-Reactive Protein 6.1 mg/L (<10.0) 06/04/17 07:02 Urine Color Yellow 06/04/17 14:00 Urine Appearance Clear (Clear) 06/04/17 14:00 Urine pH 5.5 (5.0-8.0) 06/04/17 14:00 Ur Specific [place] 1.024 (1.001-1.035) 06/04/17 14:00 Urine Protein Trace (Negative) H 06/04/17 14:00 Urine Glucose (UA) Trace (Negative) H 06/04/17 14:00 Urine Ketones Trace (Negative) H 06/04/17 14:00 Urine Blood Negative (Negative) 06/04/17 14:00 Urine Nitrite Negative (Negative) 06/04/17 14:00 Urine Bilirubin Negative (Negative) 06/04/17 14:00 Urine Urobilinogen <2.0 mg/dL (<2.0) 06/04/17 14:00 Ur Leukocyte Esterase Negative (Negative) 06/04/17 14:00 Blood Type AB Positive 05/28/17 13:20 Blood Type Confirm AB Positive 06/03/17 10:44 Blood Type Recheck CABO Indicated 05/28/17 13:20 Antibody Screen NEGATIVE 05/28/17 13:20 Spec Expiration Date 06/05/2017 - 231905/28/17 13:20 Microbiology 06/03/17 13:10 Hip - Right Gram Stain - Final 06/03/17 13:10 Hip - Right Wound Culture - Final 06/03/17 13:10 Hip - Right Anaerobic Culture - Preliminary Assessment and Plan (1) Tear in polyethylene cup of right prosthetic hip Status: Acute Code(s): T84.010A - BROKEN INTERNAL RIGHT HIP PROSTHESIS, INITIAL ENCOUNTER SNOMED Code(s): 083534653 (2) Infection and inflammatory reaction due to internal right hip prosthesis, initial encounter Narrative/Plan: Pleasant 76-year-old woman presents to Hospital for the revision of her polyethylene to her right hip because of increasing difficulties with ambulation and discomfort. She was taken to the operating room and the dual mobility was placed. As noted there is evidence of fluid collection that was encountered and Gram stain was positive for gram-positive cocci. If this time culture is in process and antibiotic therapy has been initiated with vancomycin therapy with cefazolin. Pending further culture results. Does have a history of infection to her left knee that did require vancomycin therapy. The patient is instructed that the culture will help further direct what her course of antibiotic therapy would be a discharge. However in the highest likelihood that she will require outpatient intravenous antibiotic therapy for this infection. She's had outpatient therapy in the past but her was alive was able to orchestrated. We discussed that she still would like to do it herself possibly utilizing elastomeric pumps. Laboratories are requested Multivitamin with zinc High-protein diet and she is up-to-date with her tetanus. We'll monitor. 06/05/2017 patient doing well with for to discharge to home. The prior microbiological data is reviewed. The Gram stain was reviewed at the outside laboratory revealing evidence of no evidence of the bacteria. In the wound culture is negative at this time. It does not appear that she has any significant underlying infection and likely just had a old seroma from her prior surgery. Will not require intravenous antibiotic therapy, and is ready for discharge to home. Status: Acute Code(s): T84.51XA - INFECT/INFLM REACTION DUE TO INTERNAL RIGHT HIP PROSTH, INIT SNOMED Code(s): 97602020
--- NOTE | 2017-06-05 22:03 | PN ---
PROGRESS NOTE DATE OF SERVICE: June 05, 2017. ATTENDING NOTE: Patient seen and examined by me. Discussed with nurse practitioner Ms. Garcia. The patient is status post right hip surgery doing well. Pain is controlled. No new issues. On therapy. EXAM: Lungs are clear. Cardiovascular 1st and 2nd sounds normal. ASSESSMENT: 1. Hip surgery. 2. Other medical conditions stable. PLAN: Continue current medication and treatment plan. MMODL / IJN: [id number] /
== END 2017-06-05 13:45 | disposition home health service (06) | DRG 467 ==
LOC: 2ORMAIN 10:05 → 3SUR 15:26
PROVIDERS: ADMIT Orthopaedic Surgery; ATTEND Orthopaedic Surgery
PROC: 0SPR0JZ Removal of Synthetic Substitute from Right Hip Joint, Femoral Surface, Open Approach (ICD-10-PCS; 2017-06-03)
PROC: 0SP909Z Removal of Liner from Right Hip Joint, Open Approach (ICD-10-PCS; 2017-06-03)
PROC: 0SUR09Z Supplement Right Hip Joint, Femoral Surface with Liner, Open Approach (ICD-10-PCS; 2017-06-03)
PROC: 0SRR019 Replacement of Right Hip Joint, Femoral Surface with Metal Synthetic Substitute, Cemented, Open Approach (ICD-10-PCS; principal; 2017-06-03 12:10)
DX: T84.060A Wear of articular bearing surface of internal prosthetic right hip joint, initial encounter (principal); D62 Acute posthemorrhagic anemia; N17.9 Acute kidney failure, unspecified; M06.9 Rheumatoid arthritis, unspecified; E78.5 Hyperlipidemia, unspecified; F41.9 Anxiety disorder, unspecified; I12.9 Hypertensive chronic kidney disease with stage 1 through stage 4 chronic kidney disease, or unspecified chronic kidney disease; M15.9 Polyosteoarthritis, unspecified; N18.9 Chronic kidney disease, unspecified; N39.3 Stress incontinence (female) (male); M85.80 Other specified disorders of bone density and structure, unspecified site; Z79.899 Other long term (current) drug therapy; Z90.710 Acquired absence of both cervix and uterus; Z96.653 Presence of artificial knee joint, bilateral; Y79.2 Prosthetic and other implants, materials and accessory orthopedic devices associated with adverse incidents
CPT/HCPCS: 73501; 76770; 80048; 81003; 85025; 85652; 86140; 86850; 86900; 86901; 87070; 87075; 87205

== ENCOUNTER 2018-11-28 11:25 | Emergency (ER) | payer MEDICARE, BC ==
--- NOTE | 2018-11-28 11:43 | ED ---
Lower Extremity Injury HPI - General Chief Complaint: Extremity Injury, Lower Stated Complaint: Fall Time Seen by Provider: 11/28/18 11:32 Source: patient, RN notes reviewed Mode of arrival: wheelchair Limitations: physical limitation - History of Present Illness Initial Comments: 78-year-old female presents emergency Department chief complaint of left knee pain. Patient states that she tripped and fell in her driveway last night. She was able to get up and ambulate. Patient states that the pain increased at the night and states that she cannot bear any weight on her left knee. There is painful. Patient did have a knee replacement approximately [address] Marcelino. Patient states that her knee is swollen and difficult to bend. She denies any head injury no loss conscious no hip pain or ankle pain. - Related Data Home Medications Medication Instructions Recorded Confirmed Atorvastatin [Lipitor] 40 mg PO DAILY 08/29/15 11/28/18 Bisoprolol-Hctz 10-6.25 mg [Ziac 1 tab PO DAILY 08/29/15 11/28/18 10-6.25] Fenofibrate [Tricor] 160 mg PO DAILY 08/29/15 11/28/18 amLODIPine [Norvasc] 10 mg PO DAILY 08/29/15 11/28/18 Venlafaxine HCl ER [Effexor Xr] 75 mg PO DAILY 06/03/17 11/28/18 Solifenacin Succinate [Vesicare] 5 mg PO DAILY 06/04/17 11/28/18 Celecoxib [CeleBREX] 200 mg PO DAILY 11/28/18 11/28/18 oxyCODONE HCL/ACETAMINOPHEN 1 tab PO DAILY 11/28/18 11/28/18 [Percocet 7.5-325 mg] Allergies Allergy/AdvReac Type Severity Reaction Status Date / Time No Known Allergies Allergy Verified 11/28/18 12:14 Review of Systems ROS Statement: Those systems with pertinent positive or pertinent negative responses have been documented in the HPI. ROS Other: All systems not noted in ROS Statement are negative. Past Medical History Past Medical History: Hyperlipidemia, Hypertension, Osteoarthritis (OA), Rheumatoid Arthritis (RA) Additional Past Medical History / Comment(s): HX OF FX RIGHT HIP, STATES HX OF R IGHT AND LEFT LEG INFECTION. History of Any Multi-Drug Resistant Organisms: None Reported Past Surgical History: Hysterectomy, Joint Replacement, Tonsillectomy Additional Past Surgical History / Comment(s): TOTAL LEFT KNEE-ANTIBIOTICS BEADS, TOTAL RIGHT HIP , DARVIN CATARACTS. Past Anesthesia/Blood Transfusion Reactions: No Reported Reaction Past Psychological History: Anxiety Smoking Status: Never smoker Past Alcohol Use History: Occasional Past Drug Use History: None Reported - Past Family History Daughter(s) Family Medical History: Pulmonary Embolus General Exam Limitations: physical limitation General appearance: alert, in no apparent distress Head exam: Present: atraumatic, normocephalic, normal inspection Neck exam: Present: normal inspection, full ROM. Absent: tenderness, meningismus, lymphadenopathy Respiratory exam: Present: normal lung sounds bilaterally. Absent: respiratory distress, wheezes, rales, rhonchi, stridor Cardiovascular Exam: Present: regular rate, normal rhythm, normal heart sounds. Absent: systolic murmur, diastolic murmur, rubs, gallop, clicks Extremities exam: Present: other (Left knee there is moderate tenderness with palpation anteriorly, there is ecchymosis noted in the proximal tib-fib region, neurovascular intact there is limited range of motion secondary to pain there is no tenderness above or below her left knee) Neurological exam: Present: alert, oriented X3, CN II-XII intact, reflexes normal. Absent: motor sensory deficit Skin exam: Present: warm, dry, intact, normal color. Absent: rash Course Vital Signs 11/28/18 11:29 Temperature 98.2 F Pulse Rate 62 Respiratory 18 Rate Blood Pressure 132/58 O2 Sat by Pulse 100 Oximetry Medical Decision Making - Medical Decision Making 78-year-old female presented from for fall, left knee pain. Patient x-rays obtained which the radiologist read as negative patient is advised follow-up with orthopedics secondary to her fall and prosthesis. Patient will continue to ice, elevate and take her pain medication use walking device. Disposition Clinical Impression: Effusion, left knee, Left knee pain Disposition: HOME SELF-CARE Condition: Stable Instructions (If sedation given, give patient instructions): Knee Pain (ED) Additional Instructions: Please return to the Emergency Department if symptoms worsen or any other concerns. Is patient prescribed a controlled substance at d/c from ED?: No Referrals: Jamar Dawson MD [Primary Care Provider] - 1-2 days Brennen Marcelino DO [Doctor of Osteopathic Medicine] - 1-2 days Time of Disposition: 12:33
--- NOTE | 2018-11-28 12:00 | XR ---
EXAMINATION TYPE: XR knee complete LT DATE OF EXAM: 11/28/2018 COMPARISON: NONE HISTORY: Pain TECHNIQUE: 3 views are submitted. FINDINGS: There is increased density seen in the distal left femur medullary aspect measuring 10 x 2.8 x 2.2 cm , medullary aspect which may be related to posttreatment change. Correlate with preoperative plain fi lm an appropriate surgical history. There is anatomic alignment status post left knee arthroplasty. A rterial vascular calcifications are present. Diffuse osteopenia noted. IMPRESSION: 1. No acute fracture or dislocation. Postsurgical changes. See above. 2. Large suprapatellar bursal fluid collection. If there is concern for internal derangement of knee correlate with MRI.
[2018-11-28] MEDS ORDERED: oxyCODONE-APAP 10-325MG 1 EACH TAB PO STA (12:44)
[2018-11-28 12:58] VITALS: BP 141/82; PULSE 73; RESP 16; TEMP 98
== END 2018-11-28 12:57 | disposition home or self-care (01) ==
LOC: EC 11:25
DX: M25.462 Effusion, left knee (principal); M25.562 Pain in left knee; E78.5 Hyperlipidemia, unspecified; I10 Essential (primary) hypertension; M19.90 Unspecified osteoarthritis, unspecified site; M06.9 Rheumatoid arthritis, unspecified; F41.9 Anxiety disorder, unspecified; Z96.652 Presence of left artificial knee joint; Z96.641 Presence of right artificial hip joint; Z79.1 Long term (current) use of non-steroidal anti-inflammatories (NSAID); Z79.891 Long term (current) use of opiate analgesic; W01.0XXA Fall on same level from slipping, tripping and stumbling without subsequent striking against object, initial encounter; Y92.89 Other specified places as the place of occurrence of the external cause
CPT/HCPCS: 99283

== ENCOUNTER 2018-11-29 13:01 | Inpatient (IN) | payer MEDICARE, BC ==
--- NOTE | 2018-11-29 13:18 | ED ---
Lower Extremity Injury HPI - General Chief Complaint: Extremity Injury, Lower Stated Complaint: Fall-Knee Injury Time Seen by Provider: 11/29/18 13:17 Source: patient Mode of arrival: wheelchair Limitations: no limitations, physical limitation - Related Data Home Medications Medication Instructions Recorded Confirmed Atorvastatin [Lipitor] 40 mg PO DAILY 08/29/15 11/28/18 Bisoprolol-Hctz 10-6.25 mg [Ziac 1 tab PO DAILY 08/29/15 11/28/18 10-6.25] Fenofibrate [Tricor] 160 mg PO DAILY 08/29/15 11/28/18 amLODIPine [Norvasc] 10 mg PO DAILY 08/29/15 11/28/18 Venlafaxine HCl ER [Effexor Xr] 75 mg PO DAILY 06/03/17 11/28/18 Solifenacin Succinate [Vesicare] 5 mg PO DAILY 06/04/17 11/28/18 Celecoxib [CeleBREX] 200 mg PO DAILY 11/28/18 11/28/18 oxyCODONE HCL/ACETAMINOPHEN 1 tab PO DAILY 11/28/18 11/28/18 [Percocet 7.5-325 mg] Allergies Allergy/AdvReac Type Severity Reaction Status Date / Time No Known Allergies Allergy Verified 11/28/18 12:14 Review of Systems ROS Statement: Those systems with pertinent positive or pertinent negative responses have been documented in the HPI. ROS Other: All systems not noted in ROS Statement are negative. Past Medical History Past Medical History: Hyperlipidemia, Hypertension, Osteoarthritis (OA), Rheumatoid Arthritis (RA) Additional Past Medical History / Comment(s): HX OF FX RIGHT HIP, STATES HX OF RIGHT AND LEFT LEG INFECTION. History of Any Multi-Drug Resistant Organisms: None Reported Past Surgical History: Hysterectomy, Joint Replacement, Tonsillectomy Additional Past Surgical History / Comment(s): TOTAL LEFT KNEE-ANTIBIOTICS BEADS, TOTAL RIGHT HIP , DARVIN CATARACTS. Past Anesthesia/Blood Transfusion Reactions: No Reported Reaction Past Psychological History: Anxiety Smoking Status: Never smoker Past Alcohol Use History: Occasional Past Drug Use History: None Reported - Past Family History Daughter(s) Family Medical History: Pulmonary Embolus General Exam Limitations: no limitations, physical limitation Course Vital Signs 11/29/18 13:13 Temperature 98.4 F Pulse Rate 18 L Respiratory 64 H Rate Blood Pressure 103/52 O2 Sat by Pulse 99 Oximetry Disposition Referrals: Jamar Dawson MD [Primary Care Provider] - 1-2 days
--- NOTE | 2018-11-29 13:38 | ED ---
Lower Extremity Injury HPI - General Chief Complaint: Extremity Injury, Lower Stated Complaint: Fall-Knee Injury Time Seen by Provider: 11/29/18 13:17 Source: patient, RN notes reviewed Mode of arrival: wheelchair Limitations: no limitations, physical limitation - History of Present Illness Initial Comments: This a 78-year-old female presents emergency Department chief complaint of intractable left knee pain. Patient seen here yesterday in emergency department for left knee pain x-rays were obtained which felt to be negative read by radiologist. Patient had knee replacement [address] Marcelino. Patient currently takes Percocet. Patient states is not helping her pain. She did contact orthopedics recommends come back to emergency department at this time. - Related Data Home Medications Medication Instructions Recorded Confirmed Atorvastatin [Lipitor] 40 mg PO DAILY 08/29/15 11/28/18 Bisoprolol-Hctz 10-6.25 mg [Ziac 1 tab PO DAILY 08/29/15 11/28/18 10-6.25] Fenofibrate [Tricor] 160 mg PO DAILY 08/29/15 11/28/18 amLODIPine [Norvasc] 10 mg PO DAILY 08/29/15 11/28/18 Venlafaxine HCl ER [Effexor Xr] 75 mg PO DAILY 06/03/17 11/28/18 Solifenacin Succinate [Vesicare] 5 mg PO DAILY 06/04/17 11/28/18 Celecoxib [CeleBREX] 200 mg PO DAILY 11/28/18 11/28/18 oxyCODONE HCL/ACETAMINOPHEN 1 tab PO DAILY 11/28/18 11/28/18 [Percocet 7.5-325 mg] Allergies Allergy/AdvReac Type Severity Reaction Status Date / Time No Known Allergies Allergy Verified 11/28/18 12:14 Review of Systems ROS Statement: Those systems with pertinent positive or pertinent negative responses have been documented in the HPI. ROS Other: All systems not noted in ROS Statement are negative. Past Medical History Past Medical History: Hyperlipidemia, Hypertension, Osteoarthritis (OA), Rheumatoid Arthritis (RA) Additional Past Medical History / Comment(s): HX OF FX RIGHT HIP, STATES HX OF RIGHT AND LEFT LEG INFECTION. History of Any Multi-Drug Resistant Organisms: None Reported Past Surgical History: Hysterectomy, Joint Replacement, Tonsillectomy Additional Past Surgical History / Comment(s): TOTAL LEFT KNEE-ANTIBIOTICS BEADS, TOTAL RIGHT HIP , DARVIN CATARACTS. Past Anesthesia/Blood Transfusion Reactions: No Reported Reaction Past Psychological History: Anxiety Smoking Status: Never smoker Past Alcohol Use History: Occasional Past Drug Use History: None Reported - Past Family History Daughter(s) Family Medical History: Pulmonary Embolus General Exam Limitations: no limitations, physical limitation General appearance: alert, in no apparent distress Neck exam: Present: normal inspection. Absent: tenderness, meningismus, lymphadenopathy Respiratory exam: Present: normal lung sounds bilaterally. Absent: respiratory distress, wheezes, rales, rhonchi, stridor Cardiovascular Exam: Present: regular rate, normal rhythm, normal heart sounds. Absent: systolic murmur, diastolic murmur, rubs, gallop, clicks Extremities exam: Present: other (Significant tenderness and swelling to left knee with limited range of motion, neurovascular intact) Neurological exam: Present: alert, oriented X3, CN II-XII intact, reflexes normal Course Vital Signs 11/29/18 13:13 Temperature 98.4 F Pulse Rate 18 L Respiratory 64 H Rate Blood Pressure 103/52 O2 Sat by Pulse 99 Oximetry Medical Decision Making - Medical Decision Making 78-year-old female present for left knee pain and did contact orthopedics recommends patient be admitted for further evaluation and pain control. Patient we placed in knee immobilizer. Disposition Clinical Impression: Effusion of knee joint, left, Knee pain Disposition: ADMITTED IP TO THIS HOSP Condition: Stable Referrals: Jamar Dawson MD [Primary Care Provider] - 1-2 days
[2018-11-29] MEDS ORDERED: ONDANSETRON 4 MG/2 ML VIAL IVP PRN (13:39)
[2018-11-29] MEDS ORDERED: NALOXONE 0.4 MG/ML 1 ML VIAL IV PRN (13:39)
[2018-11-29] MEDS: HYDROmorphone 0.5 MG/0.5 ML SYRINGE IVP PRN ×4 (13:52→22:35)
[2018-11-30] MEDS: HYDROmorphone 1 MG/ML 1 ML SYRINGE IVP PRN ×2 (08:18→14:52)
--- NOTE | 2018-11-30 09:28 | P.HPOR ---
History of Present Illness H&P Date: 11/30/18 This is a 78 year-old female who is admitted for left knee pain. Patient states that she fell on 11/26/2018 and was evaluated in the emergency room. X-rays taken in the emergency room were negative and the patient was discharged home. Patient states that by the morning of 11/27/2018 her pain was much worse and she could not move the left leg. Patient states that she has ambulated on the left knee with a knee immobilizer, but her pain has not improved. Patient had a left total knee arthroplasty [place] [address] Brennen Marcelino. Patient states that she did feel sick on 11/27/2018 but she denies any vomiting, diarrhea, cough, abdominal pain, numbness, weakness or tingling. Review of Systems See HPI. Past Medical History Past Medical History: Hyperlipidemia, Hypertension, Osteoarthritis (OA), Rheumatoid Arthritis (RA) Additional Past Medical History / Comment(s): HX OF FX RIGHT HIP, STATES HX OF RIGHT AND LEFT LEG INFECTION. History of Any Multi-Drug Resistant Organisms: None Reported Past Surgical History: Hysterectomy, Joint Replacement, Tonsillectomy Additional Past Surgical History / Comment(s): TOTAL LEFT KNEE-ANTIBIOTICS BEADS, TOTAL RIGHT HIP , DARVIN CATARACTS. Past Anesthesia/Blood Transfusion Reactions: No Reported Reaction Past Psychological History: Anxiety Additional Psychological History / Comment(s): for 2 year lifelong nonsmoker. no international travel. no experience. No significant alcohol use or animal exposures. 2 adult children who remain involved. Her daughter will come to help her after surgery. Smoking Status: Never smoker Past Alcohol Use History: Occasional Past Drug Use History: None Reported - Past Family History Daughter(s) Family Medical History: Pulmonary Embolus Medications and Allergies Home Medications Medication Instructions Recorded Confirmed Type Atorvastatin [Lipitor] 40 mg PO DAILY 08/29/15 11/29/18 History Bisoprolol-Hctz 10-6.25 mg [Ziac 1 tab PO DAILY 08/29/15 11/29/18 History 10-6.25] Fenofibrate [Tricor] 160 mg PO DAILY 08/29/15 11/29/18 History amLODIPine [Norvasc] 10 mg PO DAILY 08/29/15 11/29/18 History Venlafaxine HCl ER [Effexor Xr] 75 mg PO DAILY 06/03/17 11/29/18 History Solifenacin Succinate [Vesicare] 5 mg PO DAILY 06/04/17 11/29/18 History Celecoxib [CeleBREX] 200 mg PO DAILY 11/28/18 11/29/18 History oxyCODONE HCL/ACETAMINOPHEN 1 tab PO DAILY 11/28/18 11/29/18 History [Percocet 7.5-325 mg] Allergies Allergy/AdvReac Type Severity Reaction Status Date / Time No Known Allergies Allergy Verified 11/29/18 14:04 Physical Examination On exam patient is lying comfortably in bed in no acute distress. There is a mild effusion. There is tenderness to palpation over the medial aspect of the left knee. There is no erythema or ecchymosis. Patient has difficulty with left knee flexion. Patient is able to fully extend the left knee. Patient has difficulty with straight leg raise due to pain. Calf is soft and nontender to palpation. Sensation intact. Neurovascular status and circulatory status are intact. Results X-rays of the left knee show the total knee arthroplasty in good position and alignment. There is no fracture or dislocation. Assessment and Plan (1) History of total left knee replacement Current Visit: Yes Status: Acute Code(s): Z96.652 - PRESENCE OF LEFT ARTIFICIAL KNEE JOINT SNOMED Code(s): 4472958271146 (2) Effusion, left knee Current Visit: Yes Status: Acute Code(s): M25.462 - EFFUSION, LEFT KNEE SNOMED Code(s): 677813957774336 (3) Knee pain Current Visit: Yes Status: Acute Code(s): M25.569 - PAIN IN UNSPECIFIED KNEE SNOMED Code(s): 00541755 Plan: #1.X-rays are reviewed and are negative for any fracture or dislocation. A CT of the left knee is ordered. #2. Weightbearing as tolerated with knee immobilizer. #3. Rest, ice and elevate the left knee. #4. Further recommendations pending CT results. Will continue to follow the patient closely.
--- NOTE | 2018-11-30 10:42 | CT ---
EXAMINATION TYPE: CT knee LT wo con DATE OF EXAM: 11/30/2018 COMPARISON: X-ray dated 11/28/2018 HISTORY: Left knee pain from injury-fall CT DLP: 252 mGycm Automated exposure control for dose reduction was used. FINDINGS: Streak artifact from hardware limits the evaluation. There are postsurgical changes of total knee arthroplasty. Hardware appears grossly intact. No eviden ce of loosening. Intramedullary cement is seen in the distal femur superior to the hardware. There is a large suprapatellar joint effusion measuring 15-20 Hounsfield units with a few tiny pocket s of air anteriorly. Soft tissue swelling is seen along the lateral and anterior knee. Evaluation of the tendons and ligaments are limited due to streak artifact. Mild thickening and laxity of the quadriceps tendon near the insertion on the superior aspect of the patella. Scattered vascular artery calcifications. IMPRESSION: LARGE SIMPLE SUPRAPATELLAR JOINT EFFUSION WITH A FEW POCKETS OF AIR ANTERIORLY. FINDINGS MAY BE ON TH E BASIS OF RECENT TRAUMA, BUT INFECTIOUS PROCESS IS NOT EXCLUDED GIVEN THE POCKETS OF AIR. THICKENING AND LAXITY OF THE QUADRICEPS TENDON MAY BE ON THE BASIS OF STRAIN OR PARTIAL TEAR. NO DISPLACED FRACTURE. IF FURTHER EVALUATION IS REQUIRED, MRI OF THE KNEE WITHOUT CONTRAST MAY BE OBT AINED.
[2018-11-30] MEDS: ATORVASTATIN 40 MG TAB PO SCH (11:01)
[2018-11-30] MEDS: MELOXICAM 7.5 MG TAB PO SCH (11:01)
[2018-11-30] MEDS: BISOPROLOL-HCTZ 10-6.25 MG 1 EACH TAB PO SCH (11:02)
[2018-11-30] MEDS: TROSPIUM CHLORIDE 20 MG TABLET PO SCH (11:02)
[2018-11-30] MEDS: amLODIPine 10 MG TAB PO SCH (11:02)
[2018-11-30] MEDS: FENOFIBRATE 160 MG TAB PO SCH (11:02)
[2018-11-30] MEDS: VENLAFAXINE HCL ER 75 MG CAP PO SCH (11:02)
[2018-11-30 11:25] LABS: Albumin 3.2 g/dL (3.5-5.0); Calcium 9.1 mg/dL (8.4-10.2); Potassium 4.3 mmol/L (3.5-5.1); Total Protein 6.1 g/dL (6.3-8.2)
[2018-11-30 11:36] LABS: Basophils % (A) 0 %; Eosinophils % (A) 0 %; HGB 11.1 gm/dL (11.4-16.0); Lymphocytes # (A) 0.6 k/uL (1.0-4.8); Lymphocytes % (A) 7 %; MCH 28.4 pg (25.0-35.0); MCHC 31.6 g/dL (31.0-37.0); MCV 89.7 fL (80.0-100.0); Mean Platelet Volume 8.7; Monocytes # (A) 0.7 k/uL (0-1.0); Monocytes % (A) 7 %; Neutrophils % (A) 84 %; Platelet Count 186 k/uL (150-450); RBC 3.91 m/uL (3.80-5.40); WBC 9.5 k/uL (3.8-10.6)
--- NOTE | 2018-11-30 13:10 | XR ---
EXAMINATION TYPE: XR chest 1V portable DATE OF EXAM: 11/30/2018 HISTORY: Shortness of breath. COMPARISON: None. TECHNIQUE: Single view of the chest is submitted. FINDINGS: Demonstrated are scattered senescent parenchymal change. There is no evidence for focal infiltrate. The heart is stable. Hilar and mediastinal structures are within normal limits. Degenerative changes are seen of the dorsal spine. IMPRESSION: 1. Chronic changes without evidence for acute pulmonary disease.
--- NOTE | 2018-11-30 13:25 | CONS ---
CONSULTATION DATE OF SERVICE: 11/30/2018 REASON FOR CONSULTATION: Advice regarding hypertension, hyperlipidemia requested by Orthopedic Surgery. HISTORY OF PRESENT ILLNESS: This 78-year-old woman with a past medical history of hypertension, hyperlipidemia, history of DJD, history of rheumatoid arthritis, hysterectomy, history of joint replacement, history of anxiety being followed by Dr. Jamar Dawson in the outpatient setting was admitted after a fall and left knee pain and contusion. A CT scan of the knee showed large simple suprapatellar joint effusion with possibly thickening and laxity of the quadriceps tendon. No displaced fracture was noted. The patient is complaining of severe pain. There is no history of any fever, rigors. No history of headache, loss of consciousness or seizures at this time. PAST MEDICAL HISTORY: History of hypertension, hyperlipidemia, history of DJD, history of rheumatoid arthritis, hysterectomy, history of anxiety. MEDICATIONS: Medications are home medications: 1. Oxycodone 7.5 mg p.o. daily. 2. Norvasc 10 mg p.o. daily. 3. Effexor XR 75 mg p.o. daily. 4. VESIcare 5 mg p.o. daily. 5. TriCor 160 mg p.o. daily. 6. Celebrex 200 mg p.o. daily. 7. Bisoprolol hydrochlorothiazide 10/6.25 mg p.o. daily. 8. Lipitor 40 mg p.o. daily. ALLERGIES: Allergies are none. FAMILY HISTORY: History of pulmonary embolism in the family. SOCIAL HISTORY: No history of smoking. Occasional alcohol intake. REVIEW OF SYSTEMS: ENT: No diminished hearing or diminished vision. CARDIOVASCULAR SYSTEM: No angina or palpitations. RESPIRATORY SYSTEM: No cough or hemoptysis. GI: No nausea. : No dysuria. NERVOUS SYSTEM: No numbness or weakness. ALLERGY/IMMUNOLOGY: No history of asthma or hay fever. MUSCULOSKELETAL: As mentioned earlier. HEMATOLOGY: No history of anemia. ENDOCRINE: No history of diabetes, hypothyroidism. CONSTITUTIONAL: As mentioned earlier. DERMATOLOGY: Negative. RHEUMATOLOGY: Negative. PSYCHIATRY: As mentioned earlier. PHYSICAL EXAMINATION: The patient is alert and oriented x3. Pulse 76, blood pressure 133/67, respiration 20, temperature 100.3, pulse ox 92% on room air. HEENT: Oral mucosa moist. NECK: No jugular venous distention. No carotid bruit. No lymph node enlargement. CARDIOVASCULAR: S1, S2 muffled. No S3, no S4. RESPIRATORY: Breath sounds diminished at the bases. No rhonchi, no crackles. ABDOMEN: Soft, nontender. No mass palpable. LEGS: Left leg is in the splint. Movements are painful. NERVOUS SYSTEM: Higher functions as mentioned earlier. Moves all 4 limbs. No focal motor or sensory deficit. LYMPHATICS: No lymphadenopathy of the neck, axillae or groin. SKIN: No ulcer, rash or bleeding. JOINTS: As mentioned earlier. LABS: The labs are at this time: WBC 9.5, hemoglobin 11.1. Sodium 136. Creatinine is 1.31. ASSESSMENT: 1. Status post fall and as well as large suprapatellar joint effusion on the left side with severe pain. 2. Thickening and laxity of the quadriceps tendon on the CAT scan. 3. Fever. 4. Anemia, possibly chronic, undetermined etiology. 5. Hyponatremia. 6. Increased creatinine with possible chronic kidney disease stage 3. 7. Hypertension. 8. Hyperlipidemia. 9. Increased random blood sugar. 10.History of degenerative joint disease. 11.History of rheumatoid arthritis. 12.History of anxiety. RECOMMENDATIONS AND DISCUSSION: In this 78-year-old woman who presented with multiple medical issues, at this time I recommend to continue current medications, continue symptomatic treatment. I recommend to resume the home medications. DVT prophylaxis. The patient has some fever. I would recommend UA with micro and chest x-ray. We will follow the patient closely and the patient is fairly stable. If the patient needed surgical clearance, the patient will be cleared. See orders for further details. Thank you for letting us participate in the care this patient and patient may be asked to follow with Dr. Dawson closely after discharge. MMODL / IJN: [id number] /
[2018-11-30] MEDS: ACETAMINOPHEN TAB 325 MG TAB PO PRN (14:51)
[2018-11-30] MEDS: HEPARIN SODIUM,PORCINE 5,000 UNIT/ML 1 ML VIAL SQ SCH ×2 (14:52→20:52)
[2018-11-30] MEDS: PANTOPRAZOLE 40 MG TABLET PO SCH (14:52)
[2018-11-30 15:27] LABS: Amorphous Sediment,Urine Occasional /hpf; Appearance,Urine Cloudy (Clear); Bacteria,Urine Many /hpf; Bilirubin,Urine Negative (Negative); Blood,Urine Negative (Negative); Color,Urine Yellow; Glucose,Urine (UA) Negative (Negative); Hyaline Casts,Urine 16 /lpf (0-2); Ketones,Urine Negative (Negative); Leukocyte Esterase,Urine Moderate (Negative); Mucus,Urine Occasional /hpf; Nitrite,Urine Positive (Negative); PH, Urine 5.5 (5.0-8.0); Protein,Urine 1+ (Negative); RBC,Urine 2 /hpf (0-5); Specific Gravity,Urine 1.017 (1.001-1.035); Squamous Epithelial Cell,Urine 2 /hpf (0-4); Urobilinogen,Urine <2.0 mg/dL (<2.0); WBC,Urine 21 /hpf (0-5)
[2018-11-30] MEDS: PIPERACILLIN-TAZOBACTAM 3.375 GM in SODIUM CHLORIDE 0.9% 100 ML IVPB SCH (17:45)
[2018-11-30] MEDS: oxyCODONE-APAP 10-325MG 1 EACH TAB PO PRN (21:50)
[2018-12-01] MEDS: PIPERACILLIN-TAZOBACTAM 3.375 GM in SODIUM CHLORIDE 0.9% 100 ML IVPB SCH ×3 (00:11→17:28)
[2018-12-01] MEDS: oxyCODONE-APAP 10-325MG 1 EACH TAB PO PRN (04:07)
[2018-12-01] MEDS: FENOFIBRATE 160 MG TAB PO SCH (07:49)
[2018-12-01] MEDS: amLODIPine 10 MG TAB PO SCH (07:49)
[2018-12-01] MEDS: VENLAFAXINE HCL ER 75 MG CAP PO SCH (07:49)
[2018-12-01] MEDS: PANTOPRAZOLE 40 MG TABLET PO SCH (07:49)
[2018-12-01] MEDS: MELOXICAM 7.5 MG TAB PO SCH (07:49)
[2018-12-01] MEDS: ATORVASTATIN 40 MG TAB PO SCH (07:49)
[2018-12-01] MEDS: HEPARIN SODIUM,PORCINE 5,000 UNIT/ML 1 ML VIAL SQ SCH ×2 (07:50→20:55)
[2018-12-01] MEDS: TROSPIUM CHLORIDE 20 MG TABLET PO SCH (07:50)
[2018-12-01] MEDS: BISOPROLOL-HCTZ 10-6.25 MG 1 EACH TAB PO SCH (07:50)
[2018-12-01] MEDS: HYDROmorphone 0.5 MG/0.5 ML SYRINGE IVP PRN (08:01)
[2018-12-01 08:48] LABS: Basophils % (A) 0 %; Eosinophils # (A) 0.1 k/uL (0-0.7); Eosinophils % (A) 1 %; HCT 33.6 % (34.0-46.0); HGB 10.7 gm/dL (11.4-16.0); Lymphocytes # (A) 0.9 k/uL (1.0-4.8); Lymphocytes % (A) 9 %; MCH 28.7 pg (25.0-35.0); MCHC 31.9 g/dL (31.0-37.0); MCV 89.7 fL (80.0-100.0); Mean Platelet Volume 8.4; Monocytes # (A) 0.8 k/uL (0-1.0); Monocytes % (A) 8 %; Neutrophils # (A) 7.2 k/uL (1.3-7.7); Neutrophils % (A) 79 %; Platelet Count 231 k/uL (150-450); RBC 3.74 m/uL (3.80-5.40); RDW 14.1 % (11.5-15.5); WBC 9.1 k/uL (3.8-10.6)
[2018-12-01] MEDS ORDERED: LIDOCAINE 2% INJ 20 MG/ML (20 ML MDV) SQ STA (08:58)
[2018-12-01 09:05] LABS: Calcium 9.1 mg/dL (8.4-10.2)
[2018-12-01] MEDS ORDERED: VANCOMYCIN IV PER PHARMACY 1 EACH MISC MISCELLANE PRN (09:15)
[2018-12-01] MEDS ORDERED: VANCOMYCIN 1,250 MG in SODIUM CHLORIDE 0.9% 250 ML IVPB ONE (10:00)
[2018-12-01] MEDS: ACETAMINOPHEN TAB 325 MG TAB PO PRN (12:05)
--- NOTE | 2018-12-01 12:54 | P.CONS ---
History of Present Illness - Reason for Consult Consult date: 12/01/18 History of septic arthritis, current fever - History of Present Illness This is a 78-year-old woman who was noted infectious disease service from many years ago when she difficulty with an infection of her left total knee a rthroplasty. It appears at the point in time she had bacteremic infection in the left knee was seated requiring its revision. She she subsequently underwent a left total knee arthroplasty in [address] Marcelino. 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 Patient did well following surgery and was discharged home on oral antibiotics. Patient relates that on November 26 she had a fall outside landing on her left side but states she fell with very little force and was able to get herself up off the ground and was not experiencing any significant pain at that time. She denies any loss of consciousness. She denies any lightheadedness or dizziness leading to the fall. On Friday, November 27, she developed pain to the right lateral calf and to the left knee. She presented to [facility] emergency initially on November 28 at which time she had an x-ray done of the left knee that showed no acute fracture or dislocation. Postictal changes. Large suprapatellar bursal fluid collection. If there is concern for internal derangement of knee correlate with MRI. Patient was afebrile and she was discharged home with plan to follow-up with Dr. Marcelino. Patient subsequently returned to the emergency room on November 29 with complaints of intractable left knee pain and patient was subsequent admitted to the hospital on the [facility] floor and seen by orthopedics. They have ordered a CAT scan of the left knee that showed large simple suprapatellar joint effusion with a few pockets of air anteriorly. Findings may be on the basis of recent trauma, but infectious process is not excluded given the pockets of air. Thickening and laxity of the quadriceps tendon may be on the basis of strain or partial tear. No displaced fracture. Temperature max is 102.6, white count 9.5, creatinine 1.31, blood sugar 175. Patient was initially started on Zosyn. Patient states that she had a fever on Friday night at home. Review of Systems Constitutional: Reports chills, Reports fatigue, Reports fever, Reports poor appetite, Reports weakness Ears, nose, mouth and throat: Denies dysphagia, Denies mouth pain, Denies nasal congestion, Denies nasal discharge, Denies vertigo Cardiovascular: Denies chest pain, Denies dyspnea on exertion, Denies edema, Denies leg edema, Denies lightheadedness, Denies syncope Respiratory: Denies cough, Denies cough with sputum, Denies dyspnea, Denies excessive sputum, Denies hemoptysis Gastrointestinal: Reports loss of appetite, Denies abdominal pain, Denies constipation, Denies diarrhea, Denies nausea, Denies vomiting Genitourinary: Denies dysuria, Denies flank pain, Denies urgency, Denies urinary frequency Musculoskeletal: Reports gait dysfunction, Reports muscle weakness, Denies frequent falls, Denies myalgias Musculoskeletal: left: knee pain, knee stiffness, knee swelling Integumentary: Denies pruritus, Denies rash, Denies wounds Neurological: Denies ataxia, Denies change in mentation, Denies change in speech, Denies seizures, Denies vertigo Psychiatric: Denies anxiety, Denies depression Endocrine: Denies fatigue, Denies weight change Past Medical History Past Medical History: Hyperlipidemia, Hypertension, Osteoarthritis (OA), Rheumatoid Arthritis (RA) Additional Past Medical History / Comment(s): HX OF FX RIGHT HIP, STATES HX OF RIGHT AND LEFT LEG INFECTION. History of Any Multi-Drug Resistant Organisms: None Reported Past Surgical History: Hysterectomy, Joint Replacement, Tonsillectomy Additional Past Surgical History / Comment(s): TOTAL LEFT KNEE-ANTIBIOTICS BEADS, TOTAL RIGHT HIP , DARVIN CATARACTS. Past Anesthesia/Blood Transfusion Reactions: No Reported Reaction Past Psychological History: Anxiety Additional Psychological History / Comment(s): for 2 year lifelong nonsm oker. no international travel. no experience. No significant alcohol use or animal exposures. 2 adult children who remain involved. Smoking Status: Never smoker Past Alcohol Use History: Occasional Past Drug Use History: None Reported - Past Family History Daughter(s) Family Medical History: Pulmonary Embolus Medications and Allergies Home Medications Medication Instructions Recorded Confirmed Type Atorvastatin [Lipitor] 40 mg PO DAILY 08/29/15 11/29/18 History Bisoprolol-Hctz 10-6.25 mg [Ziac 1 tab PO DAILY 08/29/15 11/29/18 History 10-6.25] Fenofibrate [Tricor] 160 mg PO DAILY 08/29/15 11/29/18 History amLODIPine [Norvasc] 10 mg PO DAILY 08/29/15 11/29/18 History Venlafaxine HCl ER [Effexor Xr] 75 mg PO DAILY 06/03/17 11/29/18 History Solifenacin Succinate [Vesicare] 5 mg PO DAILY 06/04/17 11/29/18 History Celecoxib [CeleBREX] 200 mg PO DAILY 11/28/18 11/29/18 History oxyCODONE HCL/ACETAMINOPHEN 1 tab PO DAILY 11/28/18 11/29/18 History [Percocet 7.5-325 mg] Allergies Allergy/AdvReac Type Severity Reaction Status Date / Time No Known Allergies Allergy Verified 11/29/18 14:04 Physical Exam Vitals: Vital Signs Temp Pulse Resp BP BP Pulse Ox 12/01/18 07:44 62 18 113/57 91 L 12/01/18 05:05 98.3 F 69 18 93/51 93 L 11/30/18 23:00 98.9 F 70 16 111/61 95 11/30/18 17:51 99 F 11/30/18 15:36 100.0 F H 71 16 119/57 91 L 11/30/18 15:00 102.6 F H 131/68 11/30/18 09:29 98.3 F 131/71 Intake and Output 11/30/18 12/01/18 12/01/18 22:59 06:59 14:59 Other: Voiding Method Bedside Commode # Voids 1 1 78-year-old female, eating breakfast and appears to be in no acute distress.. HEENT: Anicteric conjunctiva are pink and moist nasal mucosa grossly intact without significant lesions, there is no thrush. Neck: The neck is supple without significant lymphadenopathy or thyromegaly. Lungs: Good bilateral air entry without significant crackles or wheezing. There is no significant bronchial sounds. There is no egophony or dullness. Heart: Regular rate and rhythm with an audible S1-S2, no S3 no S4. There is no significant murmur click or rub, PMI was nondisplaced. Abdomen: Positive bowel sounds soft and nontender without palpable masses or organomegaly. There was no guarding or rebound. Extremities: The upper extremities have excellent pulses they are symmetric, no significant petechiae or telangiectasia. No splinter hemorrhages were noted. The lower extremities are free from significant edema. The peripheral pulses were 2+ and symmetric. Noted a fusion of the left knee, tender to palpation, warmth noted. Neuro: Awake alert oriented to person place and time. There are no acute new gross focal sensory motor deficits. Results Results: Laboratory Results WBC 9.1 k/uL (3.8-10.6) 12/01/18 08:05 RBC 3.74 m/uL (3.80-5.40) L 12/01/18 08:05 Hgb 10.7 gm/dL (11.4-16.0) L 12/01/18 08:05 Hct 33.6 % (34.0-46.0) L 12/01/18 08:05 MCV 89.7 fL (80.0-100.0) 12/01/18 08:05 MCH 28.7 pg (25.0-35.0) 12/01/18 08:05 MCHC 31.9 g/dL (31.0-37.0) 12/01/18 08:05 RDW 14.1 % (11.5-15.5) 12/01/18 08:05 Plt Count 231 k/uL (150-450) 12/01/18 08:05 Neutrophils % 79 % 12/01/18 08:05 Lymphocytes % 9 % 12/01/18 08:05 Monocytes % 8 % 12/01/18 08:05 Eosinophils % 1 % 12/01/18 08:05 Basophils % 0 % 12/01/18 08:05 Neutrophils # 7.2 k/uL (1.3-7.7) 12/01/18 08:05 Lymphocytes # 0.9 k/uL (1.0-4.8) L 12/01/18 08:05 Monocytes # 0.8 k/uL (0-1.0) 12/01/18 08:05 Eosinophils # 0.1 k/uL (0-0.7) 12/01/18 08:05 Basophils # 0.0 k/uL (0-0.2) 12/01/18 08:05 ESR 75 mm/hr (0-20) H 11/30/18 10:53 Sodium 137 mmol/L (137-145) 12/01/18 08:05 Potassium 4.0 mmol/L (3.5-5.1) 12/01/18 08:05 Chloride 99 mmol/L (98-107) 12/01/18 08:05 Carbon Dioxide 31 mmol/L (22-30) H 12/01/18 08:05 Anion Gap 7 mmol/L 12/01/18 08:05 BUN 39 mg/dL (7-17) H 12/01/18 08:05 Creatinine 1.49 mg/dL (0.52-1.04) H 12/01/18 08:05 Est GFR (CKD-EPI)AfAm 39 (>60 ml/min/1.73 sqM) 12/01/18 08:05 Est GFR (CKD-EPI)NonAf 34 (>60 ml/min/1.73 sqM) 12/01/18 08:05 Glucose 114 mg/dL (74-99) H 12/01/18 08:05 Plasma Lactic Acid Talon 1.0 mmol/L (0.7-2.0) 11/30/18 14:58 Calcium 9.1 mg/dL (8.4-10.2) 12/01/18 08:05 Total Bilirubin 1.0 mg/dL (0.2-1.3) 11/30/18 10:53 AST 23 U/L (14-36) 11/30/18 10:53 ALT 29 U/L (9-52) 11/30/18 10:53 Alkaline Phosphatase 47 U/L (38-126) 11/30/18 10:53 C-Reactive Protein 335.9 mg/L (<10.0) H 11/30/18 10:53 Total Protein 6.1 g/dL (6.3-8.2) L 11/30/18 10:53 Albumin 3.2 g/dL (3.5-5.0) L 11/30/18 10:53 Urine Color Yellow 11/30/18 14:20 Urine Appearance Cloudy (Clear) H 11/30/18 14:20 Urine pH 5.5 (5.0-8.0) 11/30/18 14:20 Ur Specific Gaines 1.017 (1.001-1.035) 11/30/18 14:20 Urine Protein 1+ (Negative) H 11/30/18 14:20 Urine Glucose (UA) Negative (Negative) 11/30/18 14:20 Urine Ketones Negative (Negative) 11/30/18 14:20 Urine Blood Negative (Negative) 11/30/18 14:20 Urine Nitrite Positive (Negative) H 11/30/18 14:20 Urine Bilirubin Negative (Negative) 11/30/18 14:20 Urine Urobilinogen <2.0 mg/dL (<2.0) 11/30/18 14:20 Ur Leukocyte Esterase Moderate (Negative) H 11/30/18 14:20 Urine RBC 2 /hpf (0-5) 11/30/18 14:20 Urine WBC 21 /hpf (0-5) H 11/30/18 14:20 Ur Squamous Epith Cells 2 /hpf (0-4) 11/30/18 14:20 Amorphous Sediment Occasional /hpf (None) H 11/30/18 14:20 Urine Bacteria Many /hpf (None) H 11/30/18 14:20 Hyaline Casts 16 /lpf (0-2) H 11/30/18 14:20 Urine Mucus Occasional /hpf (None) H 11/30/18 14:20 CBC & Chem 7: 12/01/18 08:05 12/01/18 08:05 Labs: Abnormal Lab Results - Last 24 Hours (Table) 11/30/18 11/30/18 11/30/18 Range/Units 10:53 10:53 10:53 RBC (3.80-5.40) m/uL Hgb 11.1 L (11.4-16.0) gm/dL Hct (34.0-46.0) % Neutrophils # 8.0 H (1.3-7.7) k/uL Lymphocytes # 0.6 L (1.0-4.8) k/uL ESR 75 H (0-20) mm/hr Sodium 136 L (137-145) mmol/L Carbon Dioxide (22-30) mmol/L BUN 37 H (7-17) mg/dL Creatinine 1.31 H (0.52-1.04) mg/dL Glucose 175 H (74-99) mg/dL C-Reactive Protein (<10.0) mg/L Total Protein 6.1 L (6.3-8.2) g/dL Albumin 3.2 L (3.5-5.0) g/dL Urine Appearance (Clear) Urine Protein (Negative) Urine Nitrite (Negative) Ur Leukocyte Esterase (Negative) Urine WBC (0-5) /hpf Amorphous Sediment (None) /hpf Urine Bacteria (None) /hpf Hyaline Casts (0-2) /lpf Urine Mucus (None) /hpf 11/30/18 11/30/18 12/01/18 Range/Units 10:53 14:20 08:05 RBC 3.74 L (3.80-5.40) m/uL Hgb 10.7 L (11.4-16.0) gm/dL Hct 33.6 L (34.0-46.0) % Neutrophils # (1.3-7.7) k/uL Lymphocytes # 0.9 L (1.0-4.8) k/uL ESR (0-20) mm/hr Sodium (137-145) mmol/L Carbon Dioxide (22-30) mmol/L BUN (7-17) mg/dL Creatinine (0.52-1.04) mg/dL Glucose (74-99) mg/dL C-Reactive Protein 335.9 H (<10.0) mg/L Total Protein (6.3-8.2) g/dL Albumin (3.5-5.0) g/dL Urine Appearance Cloudy H (Clear) Urine Protein 1+ H (Negative) Urine Nitrite Positive H (Negative) Ur Leukocyte Esterase Moderate H (Negative) Urine WBC 21 H (0-5) /hpf Amorphous Sediment Occasional H (None) /hpf Urine Bacteria Many H (None) /hpf Hyaline Casts 16 H (0-2) /lpf Urine Mucus Occasional H (None) /hpf 12/01/18 Range/Units 08:05 RBC (3.80-5.40) m/uL Hgb (11.4-16.0) gm/dL Hct (34.0-46.0) % Neutrophils # (1.3-7.7) k/uL Lymphocytes # (1.0-4.8) k/uL ESR (0-20) mm/hr Sodium (137-145) mmol/L Carbon Dioxide 31 H (22-30) mmol/L BUN 39 H (7-17) mg/dL Creatinine 1.49 H (0.52-1.04) mg/dL Glucose 114 H (74-99) mg/dL C-Reactive Protein (<10.0) mg/L Total Protein (6.3-8.2) g/dL Albumin (3.5-5.0) g/dL Urine Appearance (Clear) Urine Protein (Negative) Urine Nitrite (Negative) Ur Leukocyte Esterase (Negative) Urine WBC (0-5) /hpf Amorphous Sediment (None) /hpf Urine Bacteria (None) /hpf Hyaline Casts (0-2) /lpf Urine Mucus (None) /hpf Assessment and Plan Plan: This is a 78-year-old female who presented to the hospital after a fall landing on her left knee status post previous total knee arthroplasty done in 2016. The patient found to have a left knee effusion and concern for infection due to fever. Anabiotic swill be switched to vancomycin. Further recommendations as patient progresses. Continue supportive care. The above dictated assessment and findings were discussed with Dr. Solo. The impression and plan of care have been directed as dictated. Bibi Meyer nurse practitioner acting as scribe for Dr. Solo.
--- NOTE | 2018-12-01 13:54 | P.PN ---
Subjective Progress Note Date: 12/01/18 This is a 78-year-old female who was admitted for left knee pain. Patient is seen and evaluated at bedside with Dr. Brennen Marcelino. Patient states that the left knee continues to be painful today and she is unable to bear weight on the left leg. Patient has been having fevers. Patient denies any fever/chills, numbness, weakness, tingling, abdominal pain, shortness of breath or chest pain. Objective - Vital Signs Vital signs: Vital Signs Temp 98.3 F 12/01/18 05:05 Pulse 62 12/01/18 07:44 Resp 18 12/01/18 07:44 BP 113/57 12/01/18 07:44 Pulse Ox 91 L 12/01/18 07:44 Intake & Output 11/30/18 12/01/18 12/01/18 18:59 06:59 18:59 Other: Voiding Method Bedside Commode Bedside Commode # Voids 2 1 - Exam On exam there is a moderate effusion. There is tenderness to palpation over the left knee. There is no erythema or ecchymosis. Patient has limited range of motion of the left knee due to pain. Calf is soft and nontender to palpation. Sensation intact. Neurovascular status and circulatory status are intact. - Labs CBC & Chem 7: 12/01/18 08:05 12/01/18 08:05 Labs: Abnormal Lab Results - Last 24 Hours (Table) 11/30/18 11/30/18 11/30/18 Range/Units 10:53 10:53 14:20 RBC (3.80-5.40) m/uL Hgb (11.4-16.0) gm/dL Hct (34.0-46.0) % Lymphocytes # (1.0-4.8) k/uL ESR 75 H (0-20) mm/hr Carbon Dioxide (22-30) mmol/L BUN (7-17) mg/dL Creatinine (0.52-1.04) mg/dL Glucose (74-99) mg/dL C-Reactive Protein 335.9 H (<10.0) mg/L Urine Appearance Cloudy H (Clear) Urine Protein 1+ H (Negative) Urine Nitrite Positive H (Negative) Ur Leukocyte Esterase Moderate H (Negative) Urine WBC 21 H (0-5) /hpf Amorphous Sediment Occasional H (None) /hpf Urine Bacteria Many H (None) /hpf Hyaline Casts 16 H (0-2) /lpf Urine Mucus Occasional H (None) /hpf 12/01/18 12/01/18 Range/Units 08:05 08:05 RBC 3.74 L (3.80-5.40) m/uL Hgb 10.7 L (11.4-16.0) gm/dL Hct 33.6 L (34.0-46.0) % Lymphocytes # 0.9 L (1.0-4.8) k/uL ESR (0-20) mm/hr Carbon Dioxide 31 H (22-30) mmol/L BUN 39 H (7-17) mg/dL Creatinine 1.49 H (0.52-1.04) mg/dL Glucose 114 H (74-99) mg/dL C-Reactive Protein (<10.0) mg/L Urine Appearance (Clear) Urine Protein (Negative) Urine Nitrite (Negative) Ur Leukocyte Esterase (Negative) Urine WBC (0-5) /hpf Amorphous Sediment (None) /hpf Urine Bacteria (None) /hpf Hyaline Casts (0-2) /lpf Urine Mucus (None) /hpf Assessment and Plan (1) History of total left knee replacement Current Visit: Yes Status: Acute Code(s): Z96.652 - PRESENCE OF LEFT ART IFICIAL KNEE JOINT SNOMED Code(s): 3463310146920 (2) Effusion, left knee Current Visit: Yes Status: Acute Code(s): M25.462 - EFFUSION, LEFT KNEE SNOMED Code(s): 599695864473561 (3) Knee pain Current Visit: Yes Status: Acute Code(s): M25.569 - PAIN IN UNSPECIFIED KNEE SNOMED Code(s): 68130069 (4) Infection of total left knee replacement Current Visit: Yes Status: Acute Code(s): T84.54XA - INFECT/INFLM REACTION DUE TO INTERNAL LEFT KNEE PROSTH, INIT SNOMED Code(s): 001748171 Plan: #1. A CT of the left knee shows: 1. Large simple suprapatellar joint effusion with a few pockets of air anteriorly. Findings may be on basis of recent trauma, but infectious process is not excluded given the pockets of air. 2. Thickening and laxity of the quadriceps tendon may be on the basis of strain or partial tear. 3. No displaced fracture. If further evaluation is required, MRI of the knee without contrast may be obtained. #2. Bedside aspiration of the left knee is performed today by Dr. Brennen Marcelino using sterile technique. The left knee is prepped with Chloraprep and anesthetized with 1% Xylocaine without epinephrine using a 22 gauge needle. An 18-gauge needle is then used to aspirate the left knee and 75cc of cloudy yellow fluid is obtained. Fluid is sent for analysis. Patient tolerated the procedure well and reported some relief of pain afterwards. #3. NPO #4. Planning for I&D of the left knee today pending patient consent due to concern for infection of left total knee arthroplasty.
[2018-12-01] MEDS ORDERED: IV FLUID CONTINUATION 600 ML IV ONE (14:31)
[2018-12-01] MEDS ORDERED: ONDANSETRON 4 MG/2 ML VIAL IVP ONE (14:38)
[2018-12-01 14:54] LABS: Color,BF Yellow
[2018-12-01 14:55] LABS: Appearance,BF Cloudy; Nucleated Cells, Body Fluid 40500 /uL; RBC, Body Fluid 5900 /uL
[2018-12-01 14:57] LABS: Mononuclear WBC,Body Fluid 11 %; Polynuclear WBC,Body Fluid 89 %; Total Cells Counted,Body Fluid 100
[2018-12-01] MEDS ORDERED: PROPOFOL 10 MG/ML 20 ML VIAL IV ONE (15:02)
[2018-12-01] MEDS ORDERED: PHENYLEPHRINE-0.9% NACL SYG 1 MG/10 ML SYRINGE ONE (15:02)
[2018-12-01] MEDS ORDERED: MIDAZOLAM 2 MG/2 ML VIAL ONE (15:02)
[2018-12-01] MEDS ORDERED: LIDOCAINE 1% INJ 10MG/ML (20 ML MDV) ONE (15:02)
[2018-12-01] MEDS ORDERED: fentaNYL (PF) 50 MCG/ML 2 ML AMP ONE (15:02)
[2018-12-01] MEDS ORDERED: HYDROcodone/APAP 5-325MG 1 EACH TAB PO PRN (15:04)
[2018-12-01] MEDS ORDERED: NALOXONE 0.4 MG/ML 1 ML VIAL IV PRN (15:04)
[2018-12-01] MEDS ORDERED: HYDROmorphone 0.5 MG/0.5 ML SYRINGE IVP PRN ×2 (15:04)
[2018-12-01] MEDS ORDERED: MAGNESIUM HYDROXIDE 2,400 MG/10 ML CUP PO PRN (15:04)
[2018-12-01] MEDS ORDERED: ceFAZolin 3,000 MG in SODIUM CHLORIDE 0.9% IRRIGATIO 3,000 ML IRRIGATION ONE (15:35)
[2018-12-01] MEDS ORDERED: TOBRAMYCIN SULFATE 1.2 GM VIAL MISCELLANE ONE (15:39)
[2018-12-01] MEDS ORDERED: VANCOMYCIN 1,000 MG VIAL MISCELLANE ONE (15:39)
--- NOTE | 2018-12-01 15:51 | P.OP ---
Date of Procedure: 12/01/18 Preoperative Diagnosis: Acute Infection left total knee Postoperative Diagnosis: Acute infection left total knee Procedure(s) Performed: Irrigation and drainage left total knee with placement of Stimulan antibiotic beads with Vancomycin and Tobramycin Anesthesia: DESTINY Surgeon: Brennen Marcelino Director Broadcast #1: Suzi Jason Estimated Blood Loss (ml): 50 Pathology: other (Cultures 2) Condition: stable Disposition: PACU Indications for Procedure: This is a 78-year-old female that presented to the hospital on Friday with pain and swelling in her left knee. She is had a prior left total knee arthroplasty performed approximately 3 years ago and had been functioning well. She fell late last week began to have pain and swelling in her knee which brought her to the hospital. Due to the swelling in her knee and aspiration was performed today, which produced a large amount of cloudy appearing fluid. After discussing the surgical and nonsurgical treatment options with the patient at length, I have elected to proceed with irrigation and drainage of the knee. She is aware this informed consent was obtained. Operative Findings: The operative findings are consistent with an acute infection in the left total knee. Description of Procedure: The patient was seen and evaluated in the preoperative area, and the operative site was marked with skin marker. Patient was then brought to the operating room and a general anesthetic was administered by the anesthesia department. Her left lower exam reason prepped and draped in usual sterile fashion. A universal timeout was then performed which confirmed the patient's name, surgical site, ALLERGIES, and consent. An incision was then made through her prior incision with the scar being excised incision was carried down to the patellar tendon. A medial parapatellar arthrotomy was then performed. Moderate amount of purulent material was expressed and this was cultured 2. The knee was then copiously irrigated with antibiotic solution with pulsatile lavage. The prosthesis was found to well fixed. After thorough irrigation Stimulan antibiotic beads with Vancomycin and Tobramycin were then placed within the knee. The arthrotomy was closed with #1 Vicryl followed by 3-0 Vicryl for subcutaneous tissue and lisa for the skin. A sterile dressing was applied patient was transferred recovery room stable condition. The certified physical therapist assistant AUGUSTO Milton was required due the complexity of the surgery the need for skilled surgical territory manager.
[2018-12-01] MEDS: SODIUM CHLORIDE 0.9% 1,000 ML IV SCH (17:19)
[2018-12-01] MEDS: BISOPROLOL 5 MG TAB PO SCH (17:58)
[2018-12-01 20:10] LABS: Basophils % (A) 0 %; Eosinophils # (A) 0.1 k/uL (0-0.7); Eosinophils % (A) 1 %; HCT 33.7 % (34.0-46.0); HGB 10.6 gm/dL (11.4-16.0); Lymphocytes # (A) 0.5 k/uL (1.0-4.8); Lymphocytes % (A) 6 %; MCH 28.4 pg (25.0-35.0); MCHC 31.4 g/dL (31.0-37.0); MCV 90.1 fL (80.0-100.0); Monocytes # (A) 0.5 k/uL (0-1.0); Monocytes % (A) 7 %; Neutrophils # (A) 6.4 k/uL (1.3-7.7); Neutrophils % (A) 84 %; Platelet Count 232 k/uL (150-450); RBC 3.74 m/uL (3.80-5.40); RDW 14.2 % (11.5-15.5); WBC 7.6 k/uL (3.8-10.6)
[2018-12-01] MEDS: SENNOSIDES-DOCUSATE SODIUM 1 EACH TAB PO SCH (20:55)
--- NOTE | 2018-12-01 23:00 | P.CON ---
Consult Note - . Consult date: 12/01/18 Assessment/Plan:: This is a 78-year-old woman who was noted infectious disease service from many years ago when she difficulty with an infection of her left total knee arthroplasty. It appears at the point in time she had bacteremic infection in the left knee was seated requiring its revision. She she subsequently underwent a left total knee arthroplasty in [address] Marcelino. 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 Patient did well following surgery and was discharged home on oral antibiotics. Patient relates that on November 26 she had a fall outside landing on her left side but states she fell with very little force and was able to get herself up off the ground and was not experiencing any significant pain at that time. She denies any loss of consciousness. She denies any lightheadedness or dizziness leading to the fall. On Friday, November 27, she developed pain to the right lateral calf and to the left knee. She presented to [facility] emergency initially on November 28 at which time she had an x-ray done of the left knee that showed no acute fracture or dislocation. Postictal changes. Large suprapatellar bursal fluid collection. If there is concern for internal derangement of knee correlate with MRI. Patient was afebrile and she was discharged home with plan to follow-up with Dr. Marcelino. Patient subsequently returned to the emergency room on November 29 with complaints of intractable left knee pain and patient was subsequent admitted to the hospital on the [facility] floor and seen by jaja zavala. They have ordered a CAT scan of the left knee that showed large simple suprapatellar joint effusion with a few pockets of air anteriorly. Findings may be on the basis of recent trauma, but infectious process is not excluded given the pockets of air. Thickening and laxity of the quadriceps tendon may be on the basis of strain or partial tear. No displaced fracture. Temperature max is 102.6, white count 9.5, creatinine 1.31, blood sugar 175. Patient was initially started on Zosyn. Patient states that she had a fever on Friday night at home. Please see the consult note as dictated by nurse practitioner Mrs. Bibi Meyer. The patient has evidence of fever, trauma significant warmth erythema and swelling. She is being taken to the operating room for incision and drainage and deep cultures to the site. Antibiotic therapy was started with Zosyn and vancomycin was added pending further culture results. The surgical plan will help determine course of antibiotics also at discharge. I agree with evaluation, assessment and plan as dictated by nurse practitioner Mrs. Bibi Meyer.
[2018-12-02] MEDS: HYDROcodone/APAP 5-325MG 1 EACH TAB PO PRN ×3 (00:23→12:47)
[2018-12-02] MEDS: PIPERACILLIN-TAZOBACTAM 3.375 GM in SODIUM CHLORIDE 0.9% 100 ML IVPB SCH ×3 (00:23→17:15)
[2018-12-02] MEDS: SODIUM CHLORIDE 0.9% 1,000 ML IV SCH ×2 (05:30→21:02)
[2018-12-02] MEDS ORDERED: VANCOMYCIN 1,250 MG in SODIUM CHLORIDE 0.9% 250 ML IVPB ONE (06:00)
[2018-12-02] MEDS: PANTOPRAZOLE 40 MG TABLET PO SCH (07:27)
[2018-12-02] MEDS: ATORVASTATIN 40 MG TAB PO SCH (07:27)
[2018-12-02] MEDS: amLODIPine 10 MG TAB PO SCH (07:27)
[2018-12-02] MEDS: HEPARIN SODIUM,PORCINE 5,000 UNIT/ML 1 ML VIAL SQ SCH ×2 (07:28→20:50)
[2018-12-02] MEDS: FENOFIBRATE 160 MG TAB PO SCH (07:28)
[2018-12-02] MEDS: BISOPROLOL 5 MG TAB PO SCH (07:29)
[2018-12-02] MEDS: VENLAFAXINE HCL ER 75 MG CAP PO SCH (07:29)
[2018-12-02] MEDS: TROSPIUM CHLORIDE 20 MG TABLET PO SCH (07:29)
[2018-12-02] MEDS ORDERED: VANCOMYCIN IV PER PHARMACY 1 EACH MISC MISCELLANE PRN (08:53)
--- NOTE | 2018-12-02 09:05 | P.PN ---
Subjective Progress Note Date: 12/02/18 This is a 78-year-old female who was admitted for left knee pain. Patient is seen and evaluated at bedside with Dr. Brennen Marcelino. Patient is status post incision and drainage of the left knee. This is postoperative day #1. Patient states that her pain is improving. Patient denies any new symptoms or complaints. Patient denies any fever/chills, numbness, weakness, tingling, abdo crista pain, shortness of breath or chest pain. Objective - Vital Signs Vital signs: Vital Signs Temp 98.6 F 12/02/18 06:29 Pulse 81 12/02/18 06:29 Resp 20 12/02/18 06:29 BP 115/62 12/02/18 06:29 Pulse Ox 95 12/02/18 06:29 Intake & Output 12/01/18 12/02/18 12/02/18 18:59 06:59 18:59 Intake Total 601 500 Output Total 5 1 Balance 596 499 Intake: IV 601 Oral 500 Output: Stool 1 Estimated Blood Loss 5 Other: Voiding Method Bedside Commode Bedside Commode # Voids 1 1 # Bowel Movements 1 - Exam On exam incision is clean, dry and intact. There is mild tenderness to palpation over the left knee. There is no erythema or ecchymosis. Patient has limited range of motion of the left knee due to pain. Calf is soft and nontender to palpation. Sensation intact. Neurovascular status and circulatory status are intact. - Labs CBC & Chem 7: 12/01/18 19:38 12/01/18 08:05 Labs: Abnormal Lab Results - Last 24 Hours (Table) 12/01/18 12/01/18 Range/Units 08:05 19:38 RBC 3.74 L (3.80-5.40) m/uL Hgb 10.6 L (11.4-16.0) gm/dL Hct 33.7 L (34.0-46.0) % Lymphocytes # 0.5 L (1.0-4.8) k/uL Carbon Dioxide 31 H (22-30) mmol/L BUN 39 H (7-17) mg/dL Creatinine 1.49 H (0.52-1.04) mg/dL Glucose 114 H (74-99) mg/dL Microbiology - Last 24 Hours (Table) 12/01/18 09:40 Gram Stain - Preliminary Knee - Left Wound Culture - Preliminary Presumptive Staph aureus 11/30/18 17:19 Blood Culture Gram Stain - Preliminary Blood Blood Culture - Preliminary Staphylococcus aureus 12/01/18 16:45 Gram Stain - Preliminary Knee - Left Wound Culture - Preliminary 12/01/18 15:35 Gram Stain - Preliminary Knee - Left Wound Culture - Preliminary 12/01/18 16:45 Anaerobic Culture - Preliminary Knee - Left 12/01/18 15:35 Anaerobic Culture - Preliminary Knee - Left 11/30/18 17:19 Blood Culture - Final Blood 12/01/18 09:40 Anaerobic Culture - Preliminary Knee - Left Assessment and Plan (1) History of total left knee replacement Current Visit: Yes Status: Acute Code(s): Z96.652 - PRESENCE OF LEFT ARTIFICIAL KNEE JOINT SNOMED Code(s): 7938603728171 (2) Effusion, left knee Current Visit: Yes Status: Acute Code(s): M25.462 - EFFUSION, LEFT KNEE SNOMED Code(s): 024339414177745 (3) Knee pain Current Visit: Yes Status: Acute Code(s): M25.569 - PAIN IN UNSPECIFIED KNEE SNOMED Code(s): 36822354 (4) Infection of total left knee replacement Current Visit: Yes Status: Acute Code(s): T84.54XA - INFECT/INFLM REACTION DUE TO INTERNAL LEFT KNEE PROSTH, INIT SNOMED Code(s): 692458447 Plan: A CT of the left knee shows: 1. Large simple suprapatellar joint effusion with a few pockets of air anteriorly. Findings may be on basis of recent trauma, but infectious process is not excluded given the pockets of air. 2. Thickening and laxity of the quadriceps tendon may be on the basis of strain or partial tear. 3. No displaced fracture. If further evaluation is required, MRI of the knee without contrast may be obtained. #1.Blood cultures are positive for gram-positive cocci in clusters. Preliminary cultures from left knee aspiration are showing presumptive staph aureus. #2. Antibiotics per infectious disease. #3. Appreciate input from internal medicine and infectious disease. #4. Weightbearing as tolerated to the left lower extremity. #5. Continue routine postoperative care and pain control. Daily dressing changes. #6. Anticipate discharge in the next 24-48 hours.
--- NOTE | 2018-12-02 16:36 | P.PN ---
Subjective Progress Note Date: 12/01/18 Patient was admitted admitted for septic arthritis of the left knee patient will undergo incision and drainage and irrigation of the left knee. Patient is comparing of severe pain in the left knee. Constitutional: Denied any fatigue denied any fever. Cardio vascular: denied any chest pain, palpitations Gastrointestinal denied any nausea vomiting Pulmonary: Denied any shortness of breath cough Neurologic denied any new focal deficits All inpatient medications were reviewed and appropriate changes in these medications as dictated in the interval history and assessment and plan. Objective - Vital Signs Vital signs: Vital Signs Temp 98.7 F 12/02/18 14:33 Pulse 72 12/02/18 14:33 Resp 18 12/02/18 14:33 BP 100/47 12/02/18 14:33 Pulse Ox 91 L 12/02/18 14:33 Intake & Output 12/01/18 12/02/18 12/02/18 18:59 06:59 18:59 Intake Total 601 500 120 Output Total 5 1 Balance 596 499 120 Intake: IV 601 Oral 500 120 Output: Stool 1 Estimated Blood Loss 5 Other: Voiding Method Bedside Commode Bedside Commode Bedside Commode # Voids 1 2 # Bowel Movements 0 - Exam PHYSICAL EXAMINATION: GENERAL: The patient is alert and oriented x3, not in any acute distress. Well developed, well nourished. HEENT: Pupils are round and equally reacting to light. EOMI. No scleral icterus. No conjunctival pallor. Normocephalic, atraumatic. No pharyngeal erythema. No thyromegaly. CARDIOVASCULAR: S1 and S2 present. No murmurs, rubs, or gallops. PULMONARY: Chest is clear to auscultation, no wheezing or crackles. ABDOMEN: Soft, nontender, nondistended, normoactive bowel sounds. No palpable organomegaly. MUSCULOSKELETAL: No joint swelling or deformity. Left knee swollen a day EXTREMITIES: No cyanosis, clubbing, or pedal edema. NEUROLOGICAL: Gross neurological examination did not reveal any focal deficits. SKIN: No rashes. - Labs CBC & Chem 7: 12/01/18 19:38 12/01/18 08:05 Labs: Abnormal Lab Results - Last 24 Hours (Table) 12/01/18 Range/Units 19:38 RBC 3.74 L (3.80-5.40) m/uL Hgb 10.6 L (11.4-16.0) gm/dL Hct 33.7 L (34.0-46.0) % Lymphocytes # 0.5 L (1.0-4.8) k/uL Microbiology - Last 24 Hours (Table) 12/01/18 09:40 Gram Stain - Preliminary Knee - Left Wound Culture - Preliminary Presumptive Staph aureus 11/30/18 17:19 Blood Culture Gram Stain - Preliminary Blood Blood Culture - Preliminary Staphylococcus aureus 12/01/18 16:45 Gram Stain - Preliminary Knee - Left Wound Culture - Preliminary 12/01/18 15:35 Gram Stain - Preliminary Knee - Left Wound Culture - Preliminary 12/01/18 16:45 Anaerobic Culture - Preliminary Knee - Left 12/01/18 15:35 Anaerobic Culture - Preliminary Knee - Left 11/30/18 17:19 Blood Culture - Final Blood 12/01/18 09:40 Anaerobic Culture - Preliminary Knee - Left Assessment and Plan Plan: -Septic arthritis of the left knee patient will be continued on vancomycin and and Zosyn as per infectious disease although won't cultures and blood cultures positive for 4 years cultures and studies are pending a repeat blood cultures were obtained. -Sepsis secondary to a bone -Hyponatremia hypovolemic hyponatremia with IV fluids expected to improve with IV fluids -Acute renal failure prerenal azotemia secondary to sepsis -Hypertension -Hyperlipidemia
--- NOTE | 2018-12-02 16:40 | P.PN ---
Subjective Patient was admitted admitted for septic arthritis of the left knee patient will undergo incision and drainage and irrigation of the left knee. Patient is comparing of severe pain in the left knee. November 22 in 2018 -Patient is status post irrigation of the right knee repeat blood cultures are so far negative Constitutional: Denied any fatigue denied any fever. Cardio vascular: denied any chest pain, palpitations Gastrointestinal denied any nausea vomiting Pulmonary: Denied any shortness of breath cough Neurologic denied any new focal deficits All inpatient medications were reviewed and appropriate changes in these medications as dictated in the interval history and assessment and plan. Objective - Vital Signs Vital signs: Vital Signs Temp 98.7 F 12/02/18 14:33 Pulse 72 12/02/18 14:33 Resp 18 12/02/18 14:33 BP 100/47 12/02/18 14:33 Pulse Ox 91 L 12/02/18 14:33 Intake & Output 12/01/18 12/02/18 12/02/18 18:59 06:59 18:59 Intake Total 601 500 120 Output Total 5 1 Balance 596 499 120 Intake: IV 601 Oral 500 120 Output: Stool 1 Estimated Blood Loss 5 Other: Voiding Method Bedside Commode Bedside Commode Bedside Commode # Voids 1 2 # Bowel Movements 0 - Exam PHYSICAL EXAMINATION: GENERAL: The patient is alert and oriented x3, not in any acute distress. Well developed, well nourished. HEENT: Pupils are round and equally reacting to light. EOMI. No scleral icterus. No conjunctival pallor. Normocephalic, atraumatic. No pharyngeal erythema. No thyromegaly. CARDIOVASCULAR: S1 and S2 present. No murmurs, rubs, or gallops. PULMONARY: Chest is clear to auscultation, no wheezing or crackles. ABDOMEN: Soft, nontender, nondistended, normoactive bowel sounds. No palpable organomegaly. MUSCULOSKELETAL: No joint swelling or deformity. Post surgically for a pack left knee EXTREMITIES: No cyanosis, clubbing, or pedal edema. NEUROLOGICAL: Gross neurological examination did not reveal any focal deficits. SKIN: No rashes. - Labs CBC & Chem 7: 12/01/18 19:38 12/01/18 08:05 Labs: Abnormal Lab Results - Last 24 Hours (Table) 12/01/18 Range/Units 19:38 RBC 3.74 L (3.80-5.40) m/uL Hgb 10.6 L (11.4-16.0) gm/dL Hct 33.7 L (34.0-46.0) % Lymphocytes # 0.5 L (1.0-4.8) k/uL Microbiology - Last 24 Hours (Table) 12/01/18 09:40 Gram Stain - Preliminary Knee - Left Wound Culture - Preliminary Presumptive Staph aureus 11/30/18 17:19 Blood Culture Gram Stain - Preliminary Blood Blood Culture - Preliminary Staphylococcus aureus 12/01/18 16:45 Gram Stain - Preliminary Knee - Left Wound Culture - Preliminary 12/01/18 15:35 Gram Stain - Preliminary Knee - Left Wound Culture - Preliminary 12/01/18 16:45 Anaerobic Culture - Preliminary Knee - Left 12/01/18 15:35 Anaerobic Culture - Preliminary Knee - Left 11/30/18 17:19 Blood Culture - Final Blood 12/01/18 09:40 Anaerobic Culture - Preliminary Knee - Left Assessment and Plan Plan: -Septic arthritis of the left knee patient will be continued on vancomycin and and Zosyn as per infectious disease although won't cultures and blood cultures positive for 4 years cultures and studies are pending a repeat blood cultures were obtained. -Sepsis secondary to a bone -Hyponatremia hypovolemic hyponatremia with IV fluids expected to improve with IV fluids -Acute renal failure prerenal azotemia secondary to sepsis with baseline creatinine around 1.0 -Hypertension -Hyperlipidemia
[2018-12-02] MEDS: SENNOSIDES-DOCUSATE SODIUM 1 EACH TAB PO SCH (20:49)
[2018-12-02] MEDS: ACETAMINOPHEN TAB 325 MG TAB PO PRN (21:22)
--- NOTE | 2018-12-03 | P.PN ---
Subjective Progress Note Date: 12/02/18 This is a 78-year-old woman who was noted infectious disease service from many years ago when she difficulty with an infection of her left total knee arthroplasty. It appears at the point in time she had bacteremic infection in the left knee was seated requiring its revision. She she subsequently underwent a left total knee arthroplasty in [address] Marcelino. 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 Patient did well following surgery and was discharged home on oral antibiotics. Patient relates that on November 26 she had a fall outside landing on her left side but states she fell with very little force and was able to get herself up off the ground and was not experiencing any significant pain at that time. She denies any loss of consciousness. She denies any lightheadedness or dizziness leading to the fall. On Friday, November 27, she developed pain to the right lateral calf and to the left knee. She presented to [facility] emergency initially on November 28 at which time she had an x-ray done of the left knee that showed no acute fracture or dislocation. Postictal changes. Large suprapatellar bursal fluid collection. If there is concern for internal derangement of knee correlate with MRI. Patient was afebrile and she was discharged home with plan to follow-up with Dr. Marcelino. Patient subsequently returned to the emergency room on November 29 with complaints of intractable left knee pain and patient was subsequent admitted to the hospital on the [facility] floor and seen by orthopedics. They have ordered a CAT scan of the left knee that showed large simple suprapatellar joint effusion with a few pockets of air anteriorly. Findings may be on the basis of recent trauma, but infectious process is not excluded given the pockets of air. Thickening and laxity of the quadriceps tendon may be on the basis of strain or partial tear. No displaced fracture. Temperature max is 102.6, white count 9.5, creatinine 1.31, blood sugar 175. Patient was initially started on Zosyn. Patient states that she had a fever on Friday night at home. 12/02/2018 patient is feeling slightly better today. She did have the injury is evidence of the bacteremia from the infection to her right knee. Orthopedic surgery determining if she needs further surgical intervention. Will order IV access and hopefully we will transition her to rehab to receive intravenous antibiotic therapy wound care and physical therapy. Objective - Vital Signs Vital signs: Vital Signs Temp 98.7 F 12/02/18 14:33 Pulse 72 12/02/18 14:33 Resp 18 12/02/18 14:33 BP 100/47 12/02/18 14:33 Pulse Ox 91 L 12/02/18 14:33 Intake & Output 12/02/18 12/02/18 12/03/18 06:59 18:59 06:59 Intake Total 500 120 240 Output Total 1 Balance 499 120 240 Intake: Oral 500 120 240 Output: Stool 1 Other: Voiding Method Bedside Commode Bedside Commode # Voids 1 2 1 # Bowel Movements 0 - Exam 78-year-old female, eating breakfast and appears to be in no acute distress.. HEENT: Anicteric conjunctiva are pink and moist nasal mucosa grossly intact without significant lesions, there is no thrush. Neck: The neck is supple without significant lymphadenopathy or thyromegaly. Lungs: Good bilateral air entry without significant crackles or wheezing. There is no significant bronchial sounds. There is no egophony or dullness. Heart: Regular rate and rhythm with an audible S1-S2, no S3 no S4. There is no significant murmur click or rub, PMI was nondisplaced. Abdomen: Positive bowel sounds soft and nontender without palpable masses or organomegaly. There was no guarding or rebound. Extremities: The upper extremities have excellent pulses they are symmetric, no significant petechiae or telangiectasia. No splinter hemorrhages were noted. The lower extremities are free from significant edema. The peripheral pulses were 2+ and symmetric. Noted a fusion of the left knee, tender to palpation, warmth noted. Neuro: Awake alert oriented to person place and time. There are no acute new gross focal sensory motor deficits. - Labs CBC & Chem 7: 12/01/18 19:38 12/01/18 08:05 Labs: Microbiology - Last 24 Hours (Table) 12/01/18 15:35 Gram Stain - Preliminary Knee - Left Wound Culture - Preliminary Presumptive Staph aureus 12/01/18 09:40 Gram Stain - Preliminary Knee - Left Wound Culture - Preliminary Presumptive Staph aureus 11/30/18 17:19 Blood Culture Gram Stain - Preliminary Blood Blood Culture - Preliminary Staphylococcus aureus 12/01/18 16:45 Gram Stain - Preliminary Knee - Left Wound Culture - Preliminary 12/01/18 16:45 Anaerobic Culture - Preliminary Knee - Left 12/01/18 15:35 Anaerobic Culture - Preliminary Knee - Left Laboratory Results WBC 7.6 k/uL (3.8-10.6) 12/01/18 19:38 RBC 3.74 m/uL (3.80-5.40) L 12/01/18 19:38 Hgb 10.6 gm/dL (11.4-16.0) L 12/01/18 19:38 Hct 33.7 % (34.0-46.0) L 12/01/18 19:38 MCV 90.1 fL (80.0-100.0) 12/01/18 19:38 MCH 28.4 pg (25.0-35.0) 12/01/18 19:38 MCHC 31.4 g/dL (31.0-37.0) 12/01/18 19:38 RDW 14.2 % (11.5-15.5) 12/01/18 19:38 Plt Count 232 k/uL (150-450) 12/01/18 19:38 Neutrophils % 84 % 12/01/18 19:38 Lymphocytes % 6 % 12/01/18 19:38 Monocytes % 7 % 12/01/18 19:38 Eosinophils % 1 % 12/01/18 19:38 Basophils % 0 % 12/01/18 19:38 Neutrophils # 6.4 k/uL (1.3-7.7) 12/01/18 19:38 Lymphocytes # 0.5 k/uL (1.0-4.8) L 12/01/18 19:38 Monocytes # 0.5 k/uL (0-1.0) 12/01/18 19:38 Eosinophils # 0.1 k/uL (0-0.7) 12/01/18 19:38 Basophils # 0.0 k/uL (0-0.2) 12/01/18 19:38 ESR 75 mm/hr (0-20) H 11/30/18 10:53 Sodium 137 mmol/L (137-145) 12/01/18 08:05 Potassium 4.0 mmol/L (3.5-5.1) 12/01/18 08:05 Chloride 99 mmol/L (98-107) 12/01/18 08:05 Carbon Dioxide 31 mmol/L (22-30) H 12/01/18 08:05 Anion Gap 7 mmol/L 12/01/18 08:05 BUN 39 mg/dL (7-17) H 12/01/18 08:05 Creatinine 1.49 mg/dL (0.52-1.04) H 12/01/18 08:05 Est GFR (CKD-EPI)AfAm 39 (>60 ml/min/1.73 sqM) 12/01/18 08:05 Est GFR (CKD-EPI)NonAf 34 (>60 ml/min/1.73 sqM) 12/01/18 08:05 Glucose 114 mg/dL (74-99) H 12/01/18 08:05 Plasma Lactic Acid [place] 1.0 mmol/L (0.7-2.0) 11/30/18 14:58 Calcium 9.1 mg/dL (8.4-10.2) 12/01/18 08:05 Total Bilirubin 1.0 mg/dL (0.2-1.3) 11/30/18 10:53 AST 23 U/L (14-36) 11/30/18 10:53 ALT 29 U/L (9-52) 11/30/18 10:53 Alkaline Phosphatase 47 U/L (38-126) 11/30/18 10:53 C-Reactive Protein 335.9 mg/L (<10.0) H 11/30/18 10:53 Total Protein 6.1 g/dL (6.3-8.2) L 11/30/18 10:53 Albumin 3.2 g/dL (3.5-5.0) L 11/30/18 10:53 Urine Color Yellow 11/30/18 14:20 Urine Appearance Cloudy (Clear) H 11/30/18 14:20 Urine pH 5.5 (5.0-8.0) 11/30/18 14:20 Ur Specific [place] 1.017 (1.001-1.035) 11/30/18 14:20 Urine Protein 1+ (Negative) H 11/30/18 14:20 Urine Glucose (UA) Negative (Negative) 11/30/18 14:20 Urine Ketones Negative (Negative) 11/30/18 14:20 Urine Blood Negative (Negative) 11/30/18 14:20 Urine Nitrite Positive (Negative) H 11/30/18 14:20 Urine Bilirubin Negative (Negative) 11/30/18 14:20 Urine Urobilinogen <2.0 mg/dL (<2.0) 11/30/18 14:20 Ur Leukocyte Esterase Moderate (Negative) H 11/30/18 14:20 Urine RBC 2 /hpf (0-5) 11/30/18 14:20 Urine WBC 21 /hpf (0-5) H 11/30/18 14:20 Ur Squamous Epith Cells 2 /hpf (0-4) 11/30/18 14:20 Amorphous Sediment Occasional /hpf (None) H 11/30/18 14:20 Urine Bacteria Many /hpf (None) H 11/30/18 14:20 Hyaline Casts 16 /lpf (0-2) H 11/30/18 14:20 Urine Mucus Occasional /hpf (None) H 11/30/18 14:20 Fluid Source Synovial 12/01/18 09:40 Fluid Color Yellow 12/01/18 09:40 Fluid Appearance Cloudy 12/01/18 09:40 Fluid RBC 5900 /uL 12/01/18 09:40 Fluid Nucleated Cells 03252 /uL 12/01/18 09:40 Fluid Polynuclear WBCs 89 % 12/01/18 09:40 Fluid Mononuclear WBCs 11 % 12/01/18 09:40 Synovial Crystals None Seen (None Seen) 12/01/18 09:40 Assessment and Plan (1) Knee pain Narrative/Plan: The patient has evidence of fever, trauma significant warmth erythema and swelling. She is being taken to the operating room for incision and drainage and deep cultures to the site. Antibiotic therapy was started with Zosyn and vancomycin was added pending further culture results. The surgical plan will help determine course of antibiotics also at discharge. Is 2018 blood culture shows evidence of MSSA and this culture from the joint. Surgery is following determine if any further interventions are needed. Matt minor will require IV access and then hopefully will go to rehabilitation to receive her intravenous antibiotic therapy as well as therapy for strength and independence. Current Visit: Yes Status: Acute Code(s): M25.569 - PAIN IN UNSPECIFIED KNEE SNOMED Code(s): 30490416
[2018-12-03] MEDS: HYDROcodone/APAP 5-325MG 1 EACH TAB PO PRN ×3 (00:06→18:17)
[2018-12-03] MEDS: PIPERACILLIN-TAZOBACTAM 3.375 GM in SODIUM CHLORIDE 0.9% 100 ML IVPB SCH ×2 (00:56→09:15)
--- NOTE | 2018-12-03 08:50 | P.PN ---
Subjective Progress Note Date: 12/03/18 This is a 78-year-old female who was admitted for left knee pain. Patient is status post incision and drainage of the left knee. This is postoperative day #2. Patient admits to some soreness in the left kne today, but states that she has been up and walking. Patient denies any new symptoms or complaints. Patient denies any fever/chills, numbness, weakness, tingling, abdominal pain, s hortness of breath or chest pain. Objective - Vital Signs Vital signs: Vital Signs Temp 98.2 F 12/03/18 07:09 Pulse 73 12/03/18 07:09 Resp 16 12/03/18 07:09 BP 156/68 12/03/18 07:09 Pulse Ox 94 L 12/03/18 07:09 Intake & Output 12/02/18 12/03/18 12/03/18 18:59 06:59 18:59 Intake Total 120 240 Balance 120 240 Intake: Oral 120 240 Other: Voiding Method Bedside Commode Bedside Commode # Voids 2 1 # Bowel Movements 0 1 - Exam On exam incision is clean, dry and intact. [place] are intact. There is no drainage. There is mild tenderness to palpation over the left knee. There is no erythema or ecchymosis. Patient has limited range of motion of the left knee due to pain. Calf is soft and nontender to palpation. Sensation intact. Neurovascular status and circulatory status are intact. - Labs CBC & Chem 7: 12/01/18 19:38 12/01/18 08:05 Labs: Microbiology - Last 24 Hours (Table) 12/01/18 15:35 Gram Stain - Preliminary Knee - Left Wound Culture - Preliminary Presumptive Staph aureus 12/01/18 09:40 Gram Stain - Preliminary Knee - Left Wound Culture - Preliminary Presumptive Staph aureus Assessment and Plan (1) History of total left knee replacement Current Visit: Yes Status: Acute Code(s): Z96.652 - PRESENCE OF LEFT ARTIFICIAL KNEE JOINT SNOMED Code(s): 2600322570758 (2) Effusion, left knee Current Visit: Yes Status: Acute Code(s): M25.462 - EFFUSION, LEFT KNEE SNOMED Code(s): 934349637289350 (3) Knee pain Current Visit: Yes Status: Acute Code(s): M25.569 - PAIN IN UNSPECIFIED KNEE SNOMED Code(s): 23389350 (4) Infection of total left knee replacement Current Visit: Yes Status: Acute Code(s): T84.54XA - INFECT/INFLM REACTION DUE TO INTERNAL LEFT KNEE PROSTH, INIT SNOMED Code(s): 815393265 Plan: A CT of the left knee shows: 1. Large simple suprapatellar joint effusion with a few pockets of air anteriorly. Findings may be on basis of recent trauma, but infectious process is not excluded given the pockets of air. 2. Thickening and laxity of the quadriceps tendon may be on the basis of strain or partial tear. 3. No displaced fracture. If further evaluation is required, MRI of the knee without contrast may be obtained. #1.Blood cultures are positive for gram-positive cocci in clusters. Preliminary cultures from left knee aspiration are showing presumptive staph aureus. #2. Antibiotics per infectious disease. Patient awaiting PICC line placement. #3. Appreciate input from internal medicine and infectious disease. #4. Weightbearing as tolerated to the left lower extremity. #5. Continue routine postoperative care and pain control. Daily dressing changes. #6. Anticipate discharge to [facility] in the next 24-48 hours.
[2018-12-03] MEDS: SODIUM CHLORIDE 0.9% 1,000 ML IV SCH ×2 (09:15→16:41)
[2018-12-03] MEDS: PANTOPRAZOLE 40 MG TABLET PO SCH (09:16)
[2018-12-03] MEDS: TROSPIUM CHLORIDE 20 MG TABLET PO SCH (09:17)
[2018-12-03] MEDS: BISOPROLOL 5 MG TAB PO SCH (09:17)
[2018-12-03] MEDS: amLODIPine 5 MG TAB PO SCH (09:17)
[2018-12-03] MEDS: ATORVASTATIN 40 MG TAB PO SCH (09:17)
[2018-12-03] MEDS: VENLAFAXINE HCL ER 75 MG CAP PO SCH (09:17)
[2018-12-03] MEDS: FENOFIBRATE 160 MG TAB PO SCH (09:17)
[2018-12-03] MEDS: HEPARIN SODIUM,PORCINE 5,000 UNIT/ML 1 ML VIAL SQ SCH ×2 (09:18→22:19)
[2018-12-03 10:19] LABS: Calcium 10.5 mg/dL (8.4-10.2); Potassium 3.9 mmol/L (3.5-5.1)
[2018-12-03 10:24] LABS: Vancomycin,Random 8.3 ug/mL
[2018-12-03 11:30] LABS: Basophils % (A) 0 %; Eosinophils % (A) 0 %; HCT 35.5 % (34.0-46.0); HGB 11.2 gm/dL (11.4-16.0); Hypochromasia Slight; Lymphocytes # (A) 0.4 k/uL (1.0-4.8); Lymphocytes % (A) 6 %; MCH 28.6 pg (25.0-35.0); MCHC 31.6 g/dL (31.0-37.0); MCV 90.2 fL (80.0-100.0); Mean Platelet Volume 8.3; Monocytes # (A) 0.9 k/uL (0-1.0); Monocytes % (A) 12 %; Neutrophils # (A) 6.1 k/uL (1.3-7.7); Neutrophils % (A) 79 %; Platelet Count 304 k/uL (150-450); RBC 3.93 m/uL (3.80-5.40); RDW 14.1 % (11.5-15.5); WBC 7.7 k/uL (3.8-10.6)
--- NOTE | 2018-12-03 14:39 | IR ---
PICC LINE PLACEMENT: HISTORY: Infection requiring long-term antibiotic therapy PROCEDURE: Ultrasound and fluoroscopic guidance of PICC line placement. COMPLICATIONS: None ANESTHESIA: 1. 1% Lidocaine locally. FINDINGS/TECHNIQUE: The procedure was explained to the patient. The risks, complications, benefits and alternatives were discussed and any questions were answered. Informed consent was obtained. The patient was placed supine on the fluoroscopic table and prepped and draped in the usual sterile fash ion. Utilizing a 21 gauge needle and sonographic and fluoroscopic guidance, access in the left basi lic vein was achieved and there is placement of a 0.018 guidewire. The vein is patent. A 4-F sheat h was placed over the guidewire. The guidewire and dilator were removed and a 4-F. PICC line was rossana herb through the sheath with the tip at the level of the SVC. The sheath was removed, the catheter wa s flushed and sutured into position. The patient was stable throughout the procedure and remained st able upon discharge from the Department of Radiology. The vein puncture was patent under ultrasound. A watkins scale image was obtained to document patency of the vein punctured. All elements of the maximal barrier technique were utilized. FLUOROSCOPY TIME: 0.1 minutes and one image submitted IMPRESSION: Successful PICC line placement under ultrasound and fluoroscopic guidance.
[2018-12-03 16:01] VITALS: RESP 20
[2018-12-03] MEDS: VANCOMYCIN 1,500 MG in SODIUM CHLORIDE 0.9% 250 ML IVPB SCH (16:41)
[2018-12-03] MEDS: HYDROmorphone 0.5 MG/0.5 ML SYRINGE IVP PRN (19:50)
[2018-12-03] MEDS: SENNOSIDES-DOCUSATE SODIUM 1 EACH TAB PO SCH (22:19)
--- NOTE | 2018-12-03 23:52 | P.PN ---
Subjective Progress Note Date: 12/03/18 Principal diagnosis: Patient was admitted for septic arthritis of the left knee patient will undergo incision and drainage and irrigation of the left knee. Patient is comparing of severe pain in the left knee. 12/02/2018 -Patient is status post irrigation of the right knee repeat blood cultures are so far negative Constitutional: Denied any fatigue denied any fever. Cardio vascular: denied any chest pain, palpitations Gastrointestinal denied any nausea vomiting Pulmonary: Denied any shortness of breath cough Neurologic denied any new focal deficits 12/03/2018 Patient is still having some left knee pain and discomfort. Patient states that the dressing was redressed as it was loose. Discussed with the patient about going to rehab for continued IV antibiotic therapy and also work with physical therapy. Patient will be going to [facility] once approved. Patient denies any chest pain, shortness of breath, or palpitations at this time. PT/OT following. Patient will be receiving a PICC line for IV antibiotic therapy. Guarded prognosis. Objective - Vital Signs Vital signs: Vital Signs Temp 98.2 F 12/03/18 12:07 Pulse 65 12/03/18 15:06 Resp 20 12/03/18 15:06 BP 135/56 12/03/18 15:06 Pulse Ox 96 12/03/18 15:06 Intake & Output 12/02/18 12/03/18 12/03/18 18:59 06:59 18:59 Intake Total 120 240 Balance 120 240 Intake: Oral 120 240 Other: Voiding Method Bedside Commode Bedside Commode # Voids 2 1 1 # Bowel Movements 0 1 1 - Labs CBC & Chem 7: 12/03/18 09:07 12/03/18 09:07 Labs: Abnormal Lab Results - Last 24 Hours (Table) 12/03/18 12/03/18 Range/Units 09:07 09:07 Hgb 11.2 L (11.4-16.0) gm/dL Lymphocytes # 0.4 L (1.0-4.8) k/uL BUN 23 H (7-17) mg/dL Glucose 191 H (74-99) mg/dL Calcium 10.5 H (8.4-10.2) mg/dL Microbiology - Last 24 Hours (Table) 12/01/18 09:40 Anaerobic Culture - Preliminary Knee - Left 12/01/18 09:40 Gram Stain - Final Knee - Left Wound Culture - Final Staphylococcus aureus 12/01/18 15:35 Gram Stain - Preliminary Knee - Left Wound Culture - Preliminary Presumptive Staph aureus Assessment and Plan Assessment: -Septic arthritis of the left knee patient will be continued on vancomycin and and Cefazolin as per infectious disease. wound cultures and blood cultures positive staphylococcus aureus. -Sepsis secondary to a bone -Hyponatremia hypovolemic hyponatremia with IV fluids expected to improve with IV fluids. Sodium is 137 -Acute renal failure prerenal azotemia secondary to sepsis with baseline creatinine around 1.0. current creatinine is 0.94 -Hypertension -Hyperlipidemia Recommendations and discussion: Continue current medication management and symptomatic treatment. Infectious disease are following. Patient will be going to [facility] once approved by her insurance. Patient received a PICC line today for continued IV antibiotic therapy while at rehab. Guarded prognosis. Will continue to monitor vitals and labs closely. Possible discharge to [facility] in 24-48 hours.
[2018-12-04] MEDS: HYDROcodone/APAP 5-325MG 1 EACH TAB PO PRN ×2 (00:33→08:41)
[2018-12-04] MEDS: SODIUM CHLORIDE 0.9% 1,000 ML IV SCH (04:24)
[2018-12-04] MEDS: HYDROmorphone 0.5 MG/0.5 ML SYRINGE IVP PRN (04:57)
[2018-12-04 05:21] VITALS: BP 163/74; PULSE 66; TEMP 98.5
[2018-12-04] MEDS: PANTOPRAZOLE 40 MG TABLET PO SCH (08:34)
[2018-12-04] MEDS: BISOPROLOL 5 MG TAB PO SCH (08:34)
[2018-12-04] MEDS: amLODIPine 5 MG TAB PO SCH (08:34)
[2018-12-04] MEDS: VENLAFAXINE HCL ER 75 MG CAP PO SCH (08:34)
[2018-12-04] MEDS: FENOFIBRATE 160 MG TAB PO SCH (08:34)
[2018-12-04] MEDS: ATORVASTATIN 40 MG TAB PO SCH (08:34)
[2018-12-04] MEDS: HEPARIN SODIUM,PORCINE 5,000 UNIT/ML 1 ML VIAL SQ SCH (08:35)
[2018-12-04] MEDS: VANCOMYCIN 1,500 MG in SODIUM CHLORIDE 0.9% 250 ML IVPB SCH (09:47)
--- NOTE | 2018-12-04 10:00 | P.DS ---
Providers Date of admission: 11/30/18 13:33 Expected date of discharge: 12/04/18 Attending physician: Brennen Marcelino Consults: 11/30/18 09:28 Consult Physician Routine Consulting Provider: Lawson Payne Consult Reason/Comments: medical management Do you want consulting provider notified?: Already Contacted 11/30/18 14:37 Consult Physician Routine Consulting Provider: Ariel Solo Reason/Comments: hx septic arth, current fever Do you want consulting provider notified?: Yes Primary care physician: Jamar Dawson - Discharge Diagnosis(es) (1) History of total left knee replacement Current Visit: Yes Status: Acute (2) Effusion, left knee Current Visit: Yes Status: Acute (3) Knee pain Current Visit: Yes Status: Acute (4) Infection of total left knee replacement Current Visit: Yes Status: Acute Hospital Course: This is a 78-year-old female who developed pain in the left knee after a fall on 11/26/2018. Patient was evaluated in the emergency room on 11/28/2018 and was discharged after x-rays were found to be negative. Patient returned to the emergency room on 11/30/2018 due to an increase in pain and inability to ambulate. Patient has a history of left total knee arthroplasty [place] [address] Brennen Marcelino. During this admission patient was febrile and ESR and CRP were elevated. Patient's left knee was aspirated at bedside on 12/01/2018 and fluid was suspicious for infection. After discussion and consideration patient elected to proceed with irrigation and debridement of the left knee with placement of antibiotic beads. The patient is seen preoperatively by Dr. Marcelino and cleared for surgery by internal medicine. Patient is admitted to [facility] on 11/30/2018 and irrigation and debridement of the left knee with placement of antibiotic beads is performed on 12/01/2018. The procedures performed without complication or sequelae. The patient is doing well postoperatively. Labs and vital signs are stable on day of discharge. Blood cultures and synovial fluid cultures are positive for MSSA. Patient underwent PICC line placement and IV antibiotics are being managed by infectious disease. On day of discharge patient's knee incision is healing well. There is minimal erythema. [place] are intact. There is no drainage noted at this time. There is minimal soft tissue swelling to the left knee. Patient has full foot and ankle motion without difficulty or pain. Neurovascular status to the left lower extremity is intact. Patient is discharged to rehab in good condition. [facility] for accurate list of home medications. Patient Condition at Discharge: Stable Plan - Discharge Summary Discharge Rx Participant: No New Discharge Prescriptions: New ceFAZolin [Kefzol] 2 gm IVP Q8HR #126 dose HYDROcodone/APAP 5-325MG [Winslow 5-325] 1 - 2 tab PO Q6HR PRN #56 tab PRN Reason: Pain Sennosides [Senokot] 1 tab PO BID #60 tablet No Action Bisoprolol-Hctz 10-6.25 mg [Ziac 10-6.25] 1 tab PO DAILY Atorvastatin [Lipitor] 40 mg PO DAILY Fenofibrate [Tricor] 160 mg PO DAILY amLODIPine [Norvasc] 10 mg PO DAILY Venlafaxine HCl ER [Effexor Xr] 75 mg PO DAILY Solifenacin Succinate [Vesicare] 5 mg PO DAILY Celecoxib [CeleBREX] 200 mg PO DAILY oxyCODONE HCL/ACETAMINOPHEN [Percocet 7.5-325 mg] 1 tab PO DAILY Discharge Medication List Atorvastatin [Lipitor] 40 mg PO DAILY 08/29/15 [History] Bisoprolol-Hctz 10-6.25 mg [Ziac 10-6.25] 1 tab PO DAILY 08/29/15 [History] Fenofibrate [Tricor] 160 mg PO DAILY 08/29/15 [History] amLODIPine [Norvasc] 10 mg PO DAILY 08/29/15 [History] Venlafaxine HCl ER [Effexor Xr] 75 mg PO DAILY 06/03/17 [History] Solifenacin Succinate [Vesicare] 5 mg PO DAILY 06/04/17 [History] Celecoxib [CeleBREX] 200 mg PO DAILY 11/28/18 [History] oxyCODONE HCL/ACETAMINOPHEN [Percocet 7.5-325 mg] 1 tab PO DAILY 11/28/18 [History] ceFAZolin [Kefzol] 2 gm IVP Q8HR #126 dose 12/03/18 [Rx] HYDROcodone/APAP 5-325MG [Winslow 5-325] 1 - 2 tab PO Q6HR PRN #56 tab 12/04/18 [Rx] Sennosides [Senokot] 1 tab PO BID #60 tablet 12/04/18 [Rx] Follow up Appointment(s)/Referral(s): Ariel Solo MD [STAFF PHYSICIAN] - 1 Week [facility], [NON-STAFF] - Jamar Dawson MD [Primary Care Provider] - 1-2 days Brennen Marcelino DO [Doctor of Osteopathic Medicine] - 10 Days Ambulatory/Diagnostic Orders: Basic Metabolic Panel [LAB.AMB] Location: None Selected C Reactive Protein [LAB.AMB] Location: None Selected Complete Blood Count w/diff [LAB.AMB] Location: None Selected Erythrocyte Sedimentation Rate [LAB.AMB] Location: None Selected Activity/Diet/Wound Care/Special Instructions: Daily dressing changes. Winchester to be removed in 10-14 days. Keep the incisions clean and dry. Patient may shower in 24-48 hours if no drainage from the incision. Weightbearing as tolerated to the left lower extremity. Please follow-up with [facility] to call with any questions or concerns, . regular diet as tolerated VANIA PICC line inserted 12/03/18 Discharge Disposition: TRANSFER TO SNF/ECF
--- NOTE | 2018-12-04 16:12 | P.PN ---
Subjective Progress Note Date: 12/04/18 Principal diagnosis: Patient was admitted for septic arthritis of the left knee patient will undergo incision and drainage and irrigation of the left knee. Patient is comparing of severe pain in the left knee. 12/02/2018 -Patient is status post irrigation of the right knee repeat blood cultures are so far negative Constitutional: Denied any fatigue denied any fever. Cardio vascular: denied any chest pain, palpitations Gastrointestinal denied any nausea vomiting Pulmonary: Denied any shortness of breath cough Neurologic denied any new focal deficits 12/03/2018 Patient is still having some left knee pain and discomfort. Patient states that the dressing was redressed as it was loose. Discussed with the patient about going to rehab for continued IV antibiotic therapy and also work with physical therapy. Patient will be going to [facility] once approved. Patient denies any chest pain, shortness of breath, or palpitations at this time. PT/OT following. Patient will be receiving a PICC line for IV antibiotic therapy. Guarded prognosis. 12/04/2018 Patient is sitting up at the bedside in the recliner in no acute distress. No acute changes overnight. PT/OT working with the patient. Patient is afebrile. Patient denies any shortness of breath, chest pain, or palpitations at this time. Patient denies any nausea or vomiting and has been tolerating diet. Patient was approved for [facility] rehab facility in a PICC line was guardian place as of yesterday. Guarded prognosis Objective - Vital Signs Vital signs: Vital Signs Temp 98.5 F 12/04/18 04:45 Pulse 66 12/04/18 04:45 Resp 20 12/04/18 04:45 BP 163/74 12/04/18 04:45 Pulse Ox 96 12/04/18 04:45 Intake & Output 12/03/18 12/04/18 12/04/18 18:59 06:59 18:59 Intake Total 300 Balance 300 Intake: Oral 300 Other: Voiding Method Bedside Commode Bedside Commode # Voids 1 1 2 # Bowel Movements 1 1 - Exam Gen: This is a 78-year-old female sitting up at the site of the bed in no acute distress. Vital signs are stable. Patient is afebrile. HEENT: Head is atraumatic, normocephalic. Pupils equal, round. Sclerae is anicteric. NECK: Supple. No JVD. No lymphadenopathy. No thyromegaly. LUNGS: Clear to auscultation. No wheezes or rhonchi. No intercostal retractions. HEART: Regular rate and rhythm. No murmur. ABDOMEN: Soft. Bowel sounds are present. No masses. No tenderness. EXTREMITIES: No pedal edema. No calf tenderness. Left knee has a dressing is dry and intact. NEUROLOGICAL: Patient is awake, alert and oriented x3. Cranial nerves 2 through 12 are grossly intact. - Labs CBC & Chem 7: 12/03/18 09:07 12/04/18 10:08 Labs: Microbiology - Last 24 Hours (Table) 11/30/18 17:19 Blood Culture Gram Stain - Final Blood Blood Culture - Final Staphylococcus aureus 12/01/18 16:45 Anaerobic Culture - Preliminary Knee - Left 12/01/18 15:35 Anaerobic Culture - Preliminary Knee - Left 12/01/18 15:35 Gram Stain - Final Knee - Left Wound Culture - Final Staphylococcus aureus 12/01/18 16:45 Gram Stain - Final Knee - Left Wound Culture - Final Staphylococcus aureus 12/01/18 09:40 Anaerobic Culture - Preliminary Knee - Left Assessment and Plan Assessment: -Septic arthritis of the left knee patient will be continued on vancomycin and and Cefazolin as per infectious disease. wound cultures and blood cultures positive staphylococcus aureus. -Sepsis secondary to a bone -Hyponatremia hypovolemic hyponatremia with IV fluids expected to improve with IV fluids. Sodium is 137 -Acute renal failure prerenal azotemia secondary to sepsis with baseline creati nine around 1.0. current creatinine is 0.94 -Hypertension -Hyperlipidemia Recommendations and discussion: Continue current medication management and symptomatic treatment. Infectious disease are following. Patient was approved for [facility] for PT/OT and continued IV antibiotic therapy. Patient received a PICC line yesterday for continued IV antibiotic therapy while at rehab. Guarded prognosis. Patient is awaiting discharge to [facility] today.
--- NOTE | 2018-12-10 08:45 | CDI ---
Documentation Clarification Form Date: 12/10/2018 8:42:00 AM From: Matilde Hernández Phone: If you have a question regarding this query, please contact Cherry Hernandez at [phone] Admit Date: 11/30/2018 1:33:00 PM Patient Name: Carline Kim Visit Number: [id number] Discharge Date: 12/04/2018 1:14:00 PM ATTENTION: The Clinical Documentation Specialists (CDI) and [facility] Coding Staff appreciate your assistance in clarifying documentation. Please respond to the clarification below the line at the bottom and electronically sign. The CDI & [facility] Coding staff will review the response and follow-up if needed. Please note: Queries are made part of the Legal Health Record. If you have any questions, please contact the author of this message via ITS. Dr. Brennen Marcelino The patient presented with left knee pain due to infection of left total knee replacement. History/Risk Factors: Patient had previous left total knee replacement and fell on it on 11/26. Clinical Indicators: fever WBC: 9.5 Lactic acid: 1.0 Blood cultures: Staph aureus Vitals signs on admission: T. 98.4 and up to 102.6 on 09/30, P. 64, R. 18, BP 103/52 Consult: Dr. Latham documented that the patient had sepsis in his progress notes. Antibiotics: IV Cefazolin, IV Zosyn, IV Vancomycin IV Bolus: No bolus, Sodium chloride at 100 mls/hr In your professional opinion, please clarify if these findings signify one of the following conditions, whether the condition is POA, and cause, if known: Condition Sepsis ruled out SIRS, without underlying infectious process Sepsis Other, please specify Unable to determine Present on Admission Yes No MTDD
--- NOTE | 2018-12-25 15:43 | CDI ---
Documentation Clarification Form Date: 12/25/18 From: Matilde Hernández Phone: If you have a question regarding this query, please contact Cherry Hernandez at [phone] between 8am and 5pm. Admit Date: 11/30/2018 1:33:00 PM Patient Name: Carline Kim Visit Number: [id number] Discharge Date: 12/04/2018 1:14:00 PM ATTENTION: The Clinical Documentation Specialists (CDI) and [facility] Coding Staff appreciate your assistance in clarifying documentation. Please respond to the clarification below the line at the bottom and electronically sign. The CDI & [facility] Coding staff will review the response and follow-up if needed. Please note: Queries are made part of the Legal Health Record. If you have any questions, please contact the author of this message via ITS. Dr. Brennen Marcelino Thank you for signing the previous query. Please document a response before signing this query. The patient presented with left knee pain due to infection of left total knee replacement. History/Risk Factors: Patient had previous left total knee replacement and fell on it on 11/26. Clinical Indicators: fever WBC: 9.5 Lactic acid: 1.0 Blood cultures: Staph aureus Vitals signs on admission: T. 98.4 and up to 102.6 on 09/30, P. 64, R. 18, BP 103/52 ID Consult: Dr. Latham documented that the patient had sepsis in his progress notes. Antibiotics: IV Cefazolin, IV Zosyn, IV Vancomycin IV Bolus: No bolus, Sodium chloride at 100 mls/hr In your professional opinion, please clarify if these findings signify one of the following conditions, whether the condition is POA, and cause, if known: Condition Sepsis ruled out SIRS, without underlying infectious process Sepsis Severe Sepsis Septic Shock Other, please specify Unable to determine Present on Admission Yes No Identify the (suspected) organism Link or clarify if there is associated (due to/with): Organ failure Shock MTDD
== END 2018-12-04 13:14 | DRG 485 ==
LOC: EC 13:01 → 4MS4W 14:38 → OBSVTOIN 11-30 13:33
PROVIDERS: ADMIT Orthopaedic Surgery; ATTEND Orthopaedic Surgery
PROC: 3E0U029 Introduction of Other Anti-infective into Joints, Open Approach (ICD-10-PCS; 2018-12-01)
PROC: 0S9D0ZZ Drainage of Left Knee Joint, Open Approach (ICD-10-PCS; principal; 2018-12-01 13:20)
PROC: 02HV33Z Insertion of Infusion Device into Superior Vena Cava, Percutaneous Approach (ICD-10-PCS; 2018-12-03)
DX: T84.54XA Infection and inflammatory reaction due to internal left knee prosthesis, initial encounter (principal); A41.89 Other specified sepsis; E87.1 Hypo-osmolality and hyponatremia; N17.9 Acute kidney failure, unspecified; E86.1 Hypovolemia; B95.61 Methicillin susceptible Staphylococcus aureus infection as the cause of diseases classified elsewhere; D64.9 Anemia, unspecified; M06.9 Rheumatoid arthritis, unspecified; E78.5 Hyperlipidemia, unspecified; F41.9 Anxiety disorder, unspecified; I10 Essential (primary) hypertension; M19.90 Unspecified osteoarthritis, unspecified site; Z79.1 Long term (current) use of non-steroidal anti-inflammatories (NSAID); Z79.899 Other long term (current) drug therapy; Z79.891 Long term (current) use of opiate analgesic; Z90.710 Acquired absence of both cervix and uterus; Z96.641 Presence of right artificial hip joint; Z98.42 Cataract extraction status, left eye; Z98.41 Cataract extraction status, right eye; Z96.1 Presence of intraocular lens; Z82.49 Family history of ischemic heart disease and other diseases of the circulatory system; W19.XXXA Unspecified fall, initial encounter; Y79.2 Prosthetic and other implants, materials and accessory orthopedic devices associated with adverse incidents
CPT/HCPCS: 36573; 71045; 80048; 80053; 80202; 81001; 82565; 83605; 85025; 85652; 86140; 87040; 87070; 87075; 87077; 87186; 87205; 89050; 89060; 93005; 96374; 96375; 99284

== ENCOUNTER → 2020-07-10 | Outpatient (CLI) | payer MEDICARE ==
[2020-07-10 19:57] LABS: African American GFR (CKD) 45.2 (60.0-200.0); BUN/Creat Ratio 32.31 Ratio (12.00-20.00); C Reactive Protein <0.4 mg/dL (0.0-0.8); Calcium 10.1 mg/dL (8.7-10.3); Carbon Dioxide 29.2 mmol/L (21.6-31.8); Chloride 106 mmol/L (96-109); Glucose 103 mg/dL (70-110); Sodium 143 mmol/L (135-145)
[2020-07-10 21:31] LABS: Basophils # (A) 0.03 X 10*3/uL (0.00-0.10); Basophils % (A) 0.7 %; Eosinophils % (A) 4.8 %; HCT 39.3 % (37.2-46.3); Lymphocytes % (A) 28.8 %; MCH 28.6 pg (27.0-32.0); MCHC 30.5 g/dL (32.0-37.0); MCV 93.8 fL (80.0-97.0); Mean Platelet Volume 11.9 fL (9.5-12.2); Monocytes # (A) 0.64 X 10*3/uL (0.20-1.00); Monocytes % (A) 15.4 %; Neutrophils # (A) 2.08 X 10*3/uL (1.80-7.70); Neutrophils % (A) 50.1 %; Platelet Count 235 X 10*3/uL (140-440); RBC 4.19 X 10*6/uL (4.10-5.20); RDW 13.5 % (11.5-14.5); WBC 4.16 X 10*3/uL (4.50-10.00)
[2020-07-10 23:04] LABS: Erythrocyte Sedimentation Rate 6 mm/Hr (0-30)
== END | disposition home or self-care (01) ==
LOC: LABWHC1 11:37
PROVIDERS: ATTEND Internal Medicine Infectious Disease
DX: M00.9 Pyogenic arthritis, unspecified (principal); M01.X62 Direct infection of left knee in infectious and parasitic diseases classified elsewhere; I10 Essential (primary) hypertension; M19.90 Unspecified osteoarthritis, unspecified site
CPT/HCPCS: 36415; 80048; 85025; 85652; 86140

== ENCOUNTER → 2023-12-29 | Outpatient (CLI) | payer MEDICARE ==
[2023-12-29 15:27] LABS: Basophils # (A) 0.03 X 10*3/uL (0.00-0.10); Basophils % (A) 0.9 %; Eosinophils # (A) 0.16 X 10*3/uL (0.04-0.35); Eosinophils % (A) 4.9 %; HCT 38.1 % (37.2-46.3); HGB 12.1 g/dL (12.0-15.0); Lymphocytes # (A) 0.83 X 10*3/uL (0.90-5.00); Lymphocytes % (A) 25.5 %; MCHC 31.8 g/dL (32.0-37.0); MCV 91.4 FL (80.0-97.0); Mean Platelet Volume 11.6 FL (9.5-12.2); Monocytes # (A) 0.51 X 10*3/uL (0.20-1.00); Monocytes % (A) 15.6 %; NRBC Per 100 WBC 0 X 10*3/uL (0.00-0.01); Neutrophils # (A) 1.72 X 10*3/uL (1.80-7.70); Neutrophils % (A) 52.8 %; Platelet Count 274 X 10*3/uL (140-440); RBC 4.17 X 10*6/uL (4.10-5.20); RDW 15.3 % (11.5-14.5); WBC 3.26 X 10*3/uL (4.50-10.00)
[2023-12-29 15:35] LABS: ALT 15 U/L (8-44); AST 28 U/L (13-35); Albumin 4.2 g/dL (3.8-4.9); Alkaline Phosphatase 50 U/L (41-126); BUN/Creat Ratio 32.15 Ratio (12.00-20.00); Blood Urea Nitrogen 41.8 mg/dL (9.0-27.0); C Reactive Protein <0.30 mg/dL (0.00-0.80); Carbon Dioxide 24.5 mmol/L (21.6-31.8); Chloride 106 mmol/L (96-109); Globulin 2.1 g/dL (1.6-3.3); Glucose 110 mg/dL (70-110); Potassium 4.5 mmol/L (3.5-5.5); Sodium 142 mmol/L (135-145); Total Bilirubin 0.5 mg/dL (0.3-1.2); Total Protein 6.3 g/dL (6.2-8.2)
[2023-12-29 16:17] LABS: Erythrocyte Sedimentation Rate 7 mm/Hr (0-30)
== END | disposition home or self-care (01) ==
LOC: LABWHC1 11:49
PROVIDERS: ATTEND Internal Medicine Infectious Disease
DX: Z00.00 Encounter for general adult medical examination without abnormal findings (principal)
CPT/HCPCS: 36415; 80053; 85025; 85652; 86140